=== PATIENT | male | born 1970 | race Caucasian/White ===

== ENCOUNTER 2018-01-07 22:36 | Inpatient (IN) ==
[2018-01-07] MEDS ORDERED: Diphtheria/Tetanus/Pertussis Vaccine Inj 0.5 ML Syringe IM ONE (22:41)
[2018-01-07 23:02] LABS: Baso # (Auto) 0.1 th/mm3 (0.0-0.2); Baso % (Auto) 0.9 % (0.0-2.0); Eos # (Auto) 0.1 th/mm3 (0.0-0.4); Eos % (Auto) 1.6 % (0.0-4.0); Hematocrit 45.6 % (39.0-51.0); Hemoglobin 15.6 gm/dL (13.0-17.0); Lymph # (Auto) 2.8 th/mm3 (1.0-4.8); Lymph % (Auto) 30.9 % (9.0-44.0); Mean Corpuscular HGB Conc 34.3 % (32.0-36.0); Mean Corpuscular Hemoglobin 28.2 pg (27.0-34.0); Mean Corpuscular Volume 82.3 fL (80.0-100.0); Mean Platelet Volume 8.4 fL (7.0-11.0); Mono % (Auto) 10.7 % (0.0-8.0); Neut # (Auto) 5.1 th/mm3 (1.8-7.7); Neut % (Auto) 55.9 % (16.0-70.0); Platelet Count 249 th/mm3 (150-450); Red Blood Count 5.54 mil/mm3 (4.50-5.90); Red Cell Distribution Width 16.6 % (11.6-17.2); White Blood Count 9.1 th/mm3 (4.0-11.0)
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
[2018-01-07] MEDS ORDERED: Midazolam Inj 5 MG/ML 1 ML Vial ONE ×2 (23:12→23:38)
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
[2018-01-07 23:18] LABS: Activated Partial Thrombo Time 20.9 sec (24.3-30.1); INR 1.1 Ratio; Prothrombin Time 10.8 sec (9.8-11.6)
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
--- NOTE | 2018-01-07 23:49 | ED ---
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 th/mm3 Baso # (Auto) (0.0-0.2) th/mm3 WBC Differential Differential Comment PT (9.8-11.6) sec INR Ratio APTT (24.3-30.1) sec Puncture Site Patient Temperature O2 Saturation (90-100) % ABG pH (7.380-7.420) ABG pCO2 (38-42) mmHg ABG pO2 (61-120) mmHg ABG HCO3 (22-26) mmol/L ABG O2 Content (12.0-20.0) Vol % ABG Base Excess (-2-2) mmol/L ABG Methemoglobin (0-2) % Eduardo Test Hemoglobin (12.0-16.0) G/DL Carboxyhemoglobin (0-4) % O2 Delivery Device Vent Setting Inspired O2 % Critical Value POC Sodium (137-144) mmol/L Sodium 150 H (136-145) meq/L POC Potassium (3.6-5.0) mmol/L Potassium 4.5 (3.5-5.1) meq/L POC Chloride (102-111) mmol/L Chloride 115 H (98-107) meq/L Carbon Dioxide 29.5 (21.0-32.0) meq/L Anion Gap 6 (5-15) meq/L POC BUN (5-21) mg/dL BUN 21 H (7-18) mg/dL Creatinine 1.59 H (0.60-1.30) mg/dL POC Creatinine (0.6-1.3) mg/dL Estimated GFR 47 L (>89) mL/min POC Glucose (68-110) mg/dL Random Glucose 140 H (74-106) mg/dL Calcium 7.1 L* (8.5-10.1) mg/dL Prot Corrected Calcium (8.5-10.1) mg/dL Phosphorus (2.5-4.9) mg/dL Magnesium (1.5-2.5) mg/dL Total Bilirubin (0.2-1.0) mg/dL AST (15-37) U/L ALT (12-78) U/L Alkaline Phosphatase (45-117) U/L Total Creatine Kinase (39-308) U/L CK-MB (CK-2) (0.5-3.6) ng/mL CK-MB (CK-2) % (0.0-4.0) % Total Protein (6.4-8.2) g/dL Albumin (3.4-5.0) g/dL Nasal Screen MRSA (PCR) (Negative) Blood Type Blood Type Recheck Antibody Screen MTS Gel Crossmatch Bld Prod Order Comment Imaging Data Radiologist's impression: Chest X-Ray 01/07/18 00:00 CONCLUSION: No acute cardiopulmonary disease. Chest X-Ray 01/07/18 00:00 CONCLUSION: 1. ET tube placement with tip 2 cm above the melissa. 2. No acute cardiopulmonary disease. Chest X-Ray 01/07/18 22:38 CONCLUSION: No acute cardiopulmonary disease. Pelvis X-Ray 01/07/18 22:38 CONCLUSION: 1. Diastases of the pubic symphysis. 2. Widening of the right SI joint. Abdomen/Pelvis CT 01/07/18 22:39 CONCLUSION: 1. Disruption of the pubic symphysis with the right pubic bone displaced inferiorly and anteriorly. 2. Widening of the right SI joint. 3. There is contusion along the anterior pelvic wall and right flank. Cervical Spine CT 01/07/18 22:39 CONCLUSION: 1. No fracture or subluxation. 2. Bilateral pneumothoraces. Chest CT 01/07/18 22:39 CONCLUSION: 1. Bilateral pneumothoraces. 2. Pneumomediastinum and subcutaneous emphysema bilaterally. 3. There is disruption of the costochondral junction along the upper ribs bilaterally. 4. Bilateral contusions. Head CT 01/07/18 22:39 CONCLUSION: 1. No acute intracranial abnormality. . Forearm X-Ray 01/07/18 22:47 CONCLUSION: 1. Fractures of the mid shaft of the radius and ulna. 2. Distal ulnar fracture as well. Humerus X-Ray 01/07/18 23:25 CONCLUSION: Right humerus appears intact. Chest X-Ray 01/08/18 00:00 CONCLUSION: Endotracheal tube and nasogastric tube in satisfactory position. Slight increase in basilar airspace disease since earlier exam. Bilateral chest tubes without significant pneumothorax. Forearm X-Ray 01/08/18 00:00 CONCLUSION: Fractures of the mid shafts of the radius and ulna and distal ulna have slightly improved alignment. Forearm X-Ray 01/08/18 00:00 CONCLUSION: Postoperative fixation radius and ulna. Lumbar Spine CT 01/08/18 00:00 CONCLUSION: 1. Fractures of the spinous process of L2-L5. 2. Right transverse process fractures of L2-L4. 3. Fracture of the left sacrum extending to the SI joint with widening of the right SI joint. 4. Degenerative disc disease with resultant mild multilevel spinal canal narrowing. Shoulder CT 01/08/18 00:00 CONCLUSION: 1. Suboptimal examination with the upper portions of the shoulder and acromioclavicular joint cut off this reconstructed examination. A follow-up standard shoulder CT could be performed for further evaluation. The glenohumeral joint is intact. The visualized portions of the clavicle is intact. Thoracic Spine CT 01/08/18 00:00 CONCLUSION: 1. No thoracic spine fracture. Chest X-Ray 01/08/18 00:49 CONCLUSION: 1. Bilateral consolidation likely contusions. 2. Bilateral chest tubes without pneumothoraces. Chest X-Ray 01/08/18 05:45 CONCLUSION: 1. Bilateral contusions. 2. Chest tubes without pneumothoraces. Shoulder X-Ray 01/08/18 08:41 CONCLUSION: Widening of the AC joint which could indicate an AC joint separation. Shoulder CT 01/08/18 12:45 CONCLUSION: 1. Type II AC joint injury with widening of the acromioclavicular joint and subtle superior displacement of the distal clavicle with respect to the acromion. 2. Additional traumatic injuries in the upper thorax further characterize and chest CT report. Pelvis X-Ray 01/09/18 00:00 CONCLUSION: 1. ORIF of pubic symphysis and right SI joint, as above. Chest X-Ray 01/09/18 06:00 CONCLUSION: Bilateral chest tubes without evidence of pneumothorax. Suspected left perihilar atelectasis or consolidation. Discharge Plan Discharge Disposition Patient Disposition: 30 Still Patient Physicians Team ED Provider: Bronson Pittman Primary Care Provider: UNKNOWN, Attending Provider: Александр York Other Providers: Jp Arriaga ; Jovany Aguilera ; Dandy Michel ; [employer] ; Winston Estevez ; Irma Rodarte ; Александр York ; Angella Uriostegui ; Anny Galicia ; Tavo Cee ; Adriano Barclay ; Ron Jensen ; Kimberli Bahena Status ED Status: Left Department Discharge Information Discharge Date/Time: 01/08/18 00:45
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
[2018-01-08] MEDS ORDERED: fentaNYL Citrate Inj 100 MCG/2 ML Ampul ONE ×2 (00:04→20:04)
[2018-01-08] MEDS ORDERED: Midazolam Inj 5 MG/ML 1 ML Vial ONE (00:04)
[2018-01-08] MEDS: Midazolam 50 MG/50 ML Inj 50 MG/50 ML BAG IV.CONT PRN ×3 (00:06→21:00)
[2018-01-08] MEDS: fentaNYL 10 mcg/mL Premix Drip 2,500 MCG/250 ML BAG IV.SIG PRN ×2 (00:13→23:00)
[2018-01-08] MEDS ORDERED: Etomidate Inj 20 MG/10 ML Ampul IV.PUSH ONE (00:19)
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
[2018-01-08] MEDS ORDERED: Lidocaine 1% Inj 50 ML Vial ONE (00:25)
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
[2018-01-08 01:45] LABS: ABG Base Excess -3.6 mmol/L (-2-2); ABG PCO2 38 mmHg (38-42); ABG PO2 97 mmHg (61-120)
[2018-01-08] MEDS: Pantoprazole Inj 40 MG Vial IV.PUSH SCH (02:00)
[2018-01-08] MEDS ORDERED: Chlorhexidine Gluconate 2% 1 Pack (2 Cloths) TOPICAL PRN (04:00)
[2018-01-08] MEDS ORDERED: Sod Chloride 0.9% Inj 1,000 ML IV.SIG SCH (04:45)
[2018-01-08] MEDS ORDERED: fentaNYL Citrate Inj 100 MCG/2 ML Ampul IV.PUSH SCH (04:45)
[2018-01-08 06:09] LABS: Baso % (Auto) 0.2 % (0.0-2.0); Eos % (Auto) 0.1 % (0.0-4.0); Hematocrit 44.8 % (39.0-51.0); Lymph % (Auto) 8.3 % (9.0-44.0); Mean Corpuscular HGB Conc 33.5 % (32.0-36.0); Mean Corpuscular Hemoglobin 28.3 pg (27.0-34.0); Mean Corpuscular Volume 84.4 fL (80.0-100.0); Mean Platelet Volume 8.4 fL (7.0-11.0); Mono # (Auto) 1.5 th/mm3 (0.0-0.9); Neut % (Auto) 78.4 % (16.0-70.0); Platelet Count 180 th/mm3 (150-450); Red Cell Distribution Width 16.3 % (11.6-17.2); White Blood Count 11.5 th/mm3 (4.0-11.0)
[2018-01-08 06:24] LABS: ABG Base Excess -2.5 mmol/L (-2-2); ABG PCO2 41 mmHg (38-42); ABG PO2 89 mmHg (61-120)
[2018-01-08] MEDS: Docusate Sodium 100 MG Capsule PO SCH ×3 (06:26→21:03)
[2018-01-08] MEDS: Sod Chloride 0.9% Inj 1,000 ML IV.CONT SCH (06:27)
[2018-01-08] MEDS: Chlorhexidine Gluconate 2% 1 Pack (2 Cloths) TOPICAL SCH (06:32)
[2018-01-08 07:01] LABS: Calcium 7.2 mg/dL (8.5-10.1); Carbon Dioxide 25.2 meq/L (21.0-32.0); Magnesium 1.9 mg/dL (1.5-2.5); Phosphorus 3.4 mg/dL (2.5-4.9); Potassium 4.8 meq/L (3.5-5.1); Total Protein 5.6 g/dL (6.4-8.2)
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
[2018-01-08] MEDS ORDERED: Magnesium Oxide 400 MG Tablet PO PRN (07:35)
[2018-01-08] MEDS ORDERED: Magnesium Sulfate Inj 4 GM in Sodium Chlor 0.9% Inj 92 ML IV.SIG PRN (07:35)
[2018-01-08] MEDS ORDERED: Magnesium Sulfate Inj 2 GM in Sodium Chlor 0.9% Inj 96 ML IV.SIG PRN (07:35)
[2018-01-08] MEDS ORDERED: Potassium Phosphate 500 MG Soluble Tablet PO PRN ×2 (07:35)
[2018-01-08] MEDS ORDERED: Potassium Chloride 25 MEQ Effervescent Tablet PO PRN (07:35)
[2018-01-08] MEDS ORDERED: Potassium Chlor 40 mEq Premix 40 MEQ/100 ML PIGGYBACK IV.SIG PRN ×2 (07:35)
[2018-01-08] MEDS ORDERED: Potassium Chlor 20 mEq Premix 20 MEQ/100 ML PIGGYBACK IV.SIG PRN ×2 (07:35)
[2018-01-08] MEDS ORDERED: Potassium Phosphate Inj 30 MMOL in Sodium Chlor 0.9% Inj 250 ML IV.SIG PRN (07:35)
[2018-01-08] MEDS ORDERED: Sodium Phosphate Inj 30 MMOL in Sodium Chlor 0.9% Inj 250 ML IV.SIG PRN (07:35)
[2018-01-08] MEDS ORDERED: Dextrose 50% in Water 50 ML Vial IV.PUSH PRN (07:37)
[2018-01-08] MEDS: Chlorhexidine 0.12% Oral Kit 15 ML UDC OROPHARYNG SCH ×2 (08:16→21:01)
[2018-01-08] MEDS ORDERED: Famotidine 20 MG Tablet PO SCH (09:00)
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
--- NOTE | 2018-01-08 11:55 | CT ---
EXAM DATE: 01/08/2018 11:45 AM EDT AGE/SEX: 89 years / Male INDICATIONS: Trauma CLINICAL DATA: This is the patient's initial encounter. Patient reports that signs and symptoms have been present for 1 day and indicates a pain score of Nonresponsive. MEDICAL/SURGICAL HISTORY: Non-responsive. Non-responsive. RADIATION DOSE: 0 CTDI (mGy) ; Reconstructed from previous dataset, no dose [place] [facility] [place]07[place]. . TECHNIQUE: Contiguous axial images were acquired using a multirow detector CT scanner without contra st. Multiplanar reconstruction in the sagittal and coronal planes was performed. Using automated exp osure control and adjustment of the mA and/or kV according to patient size, radiation dose was kept a s low as reasonably achievable to obtain optimal diagnostic quality images. DICOM format image data is available electronically for review and comparison. FINDINGS: Vertebrae: Normal vertebral body height. Discs: There mild degenerative disc changes with mild anterior spurring and sclerosis. Alignment: Normal. No subluxation. Axial images demonstrate that the vertebral bodies demonstrate elements are intact. There is no evide nce of acute fracture. Consolidation is again noted in both lung bases. The paravertebral soft tissue s appear unremarkable. CONCLUSION: 1. No thoracic spine fracture. Electronically signed by: Gamal Calderon MD 01/08/2018 11:54 AM EDT
--- NOTE | 2018-01-08 12:03 | CT ---
EXAM DATE: 01/08/2018 11:45 AM EDT AGE/SEX: 89 years / Male INDICATIONS: Trauma CLINICAL DATA: This is the patient's initial encounter. Patient reports that signs and symptoms have been present for 1 day and indicates a pain score of Nonresponsive. MEDICAL/SURGICAL HISTORY: Non-responsive. Non-responsive. RADIATION DOSE: 0 CTDI (mGy) ; Reconstructed from previous dataset, no dose COMPARISON: [facility] – [place] CERVICAL SPINE W/O CONTRAST, 01/07/2018. . TECHNIQUE: Contiguous axial images were acquired with a multirow detector CT scanner without contras t. Multiplanar reconstructions in the sagittal and coronal plane were also performed. Using automate d exposure control and adjustment of the mA and/or kV according to patient size, radiation dose was k ept as low as reasonably achievable to obtain optimal diagnostic quality images. DICOM format image data is available electronically for review and comparison. FINDINGS: Vertebrae: Vertebral body heights are intact. There fractures involving the spinous processes of L2- L5. There are also right transverse process fractures of L2-L4. There is a fracture of the left sacru m extending to the SI joint. There is widening of the right SI joint. Alignment: Sagittal lumbar vertebral alignment is maintained. Paraspinal Soft Tissues: Nonaneurysmal aorta. No significant prevertebral soft tissue hematoma. T12-L1: Mild diffuse disc bulge. Mild effacement anterior thecal sac. Bony neural foramina and centr al canal are patent. L1-L2: Mild diffuse disc bulge. Mild effacement anterior thecal sac. Bony neural foramina and centra l canal are patent. L2-L3: Mild diffuse disc bulge with mild ligamentum flavum hypertrophy. Effacement anterior thecal s ac. Bony central canal and neural foramina are patent. L3-L4: Mild diffuse disc bulge with effacement of the anterior central canal. Bony neural foramina a re patent. L4-L5: Mild diffuse disc bulge. Mild effacement anterior thecal sac. Bony neural foramina are patent . L5-S1: Mild bilateral facet arthropathy. Bony central canal and neuroforamina are patent. CONCLUSION: 1. Fractures of the spinous process of L2-L5. 2. Right transverse process fractures of L2-L4. 3. Fracture of the left sacrum extending to the SI joint with widening of the right SI joint. 4. Degenerative disc disease with resultant mild multilevel spinal canal narrowing. Electronically signed by: Ariel Rodriguez MD 01/08/2018 12:01 PM EDT
[2018-01-08] MEDS ORDERED: Bupivacaine 0.5% Inj 50 ML MDV Vial ONE (12:14)
[2018-01-08] MEDS ORDERED: ceFAZolin 2 GM Premix Inj 2 GM/50 ML PIGGYBACK IV.SIG ONE ×2 (12:14→15:03)
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
--- NOTE | 2018-01-08 14:17 | CT ---
EXAM DATE: 01/08/2018 12:45 PM EDT AGE/SEX: 89 years / Male INDICATIONS: Left shoulder injury CLINICAL DATA: This is the patient's initial encounter. Patient reports that signs and symptoms have been present for 1 day and indicates a pain score of Nonresponsive. MEDICAL/SURGICAL HISTORY: Non-responsive. Non-responsive. RADIATION DOSE: 36.20 CTDI (mGy) [place] [facility] [place]. . TECHNIQUE: Multiple contiguous axial images were acquired using a multirow detector CT scanner witho ut contrast. Multiplanar reconstruction was performed in the sagittal and coronal planes. Using aut omated exposure control and adjustment of the mA and/or kV according to patient size, radiation dose was kept as low as reasonably achievable to obtain optimal diagnostic quality images. DICOM format i mage data is available electronically for review and comparison. FINDINGS: Bones: Costochondral separation in the upper thorax bilaterally better visualized on chest CT exam. Partially visualized spinous process fractures in the upper thoracic spine. Visualized shoulder osseo us structures are intact without evidence for acute bony fracture.. Joints: AC joint measures approximately 1.3 cm. There is subtle superior displacement of the distal clavicle with respect to the acromion. Soft Tissues: Subcutaneous emphysema in the left chest wall with partially imaged left-sided pneumot horax. Left-sided chest tube is in place. Other: No foreign bodies seen. CONCLUSION: 1. Type II AC joint injury with widening of the acromioclavicular joint and subtle superior displace ment of the distal clavicle with respect to the acromion. 2. Additional traumatic injuries in the upper thorax further characterize and chest CT report. Electronically signed by: Ariel Rodriguez MD 01/08/2018 2:16 PM EDT
[2018-01-08 15:26] LABS: ABG Base Excess -6.2 mmol/L (-2-2); ABG PCO2 42 mmHg (38-42); ABG PO2 95 mmHG (61-120)
[2018-01-08 15:30] LABS: Baso % (Auto) 0.3 % (0.0-2.0); Eos % (Auto) 0.2 % (0.0-4.0); Hematocrit 42.6 % (39.0-51.0); Hemoglobin 14.1 gm/dL (13.0-17.0); Lymph # (Auto) 0.9 th/mm3 (1.0-4.8); Lymph % (Auto) 9.3 % (9.0-44.0); Mean Corpuscular Hemoglobin 28.2 pg (27.0-34.0); Mean Corpuscular Volume 85.5 fL (80.0-100.0); Mean Platelet Volume 8.7 fL (7.0-11.0); Mono # (Auto) 1.3 th/mm3 (0.0-0.9); Mono % (Auto) 14.6 % (0.0-8.0); Neut # (Auto) 6.9 th/mm3 (1.8-7.7); Neut % (Auto) 75.6 % (16.0-70.0); Platelet Count 158 th/mm3 (150-450); Red Blood Count 4.98 mil/mm3 (4.50-5.90); Red Cell Distribution Width 16.5 % (11.6-17.2); White Blood Count 9.2 th/mm3 (4.0-11.0)
[2018-01-08] MEDS ORDERED: Sodium Bicarbonate 8.4% Inj 50 MEQ/50 ML Syringe ONE (15:38)
--- NOTE | 2018-01-08 20:10 | XR ---
EXAM DATE: 01/08/2018 12:00 AM EDT AGE/SEX: 89 years / Male INDICATIONS: ORIF right forearm. CLINICAL DATA: This is the patient's initial encounter. Patient reports that signs and symptoms have been present for 1 day and indicates a pain score of Nonresponsive. MEDICAL/SURGICAL HISTORY: Non-responsive. Non-responsive. COMPARISON: . FINDINGS: Postoperative plate and screw fixation of fractures of the radius and ulna. No complications identifi ed. CONCLUSION: Postoperative fixation radius and ulna. Electronically signed by: Jeremy Martinez MD 01/08/2018 8:09 PM EDT
--- NOTE | 2018-01-08 21:21 | XR ---
EXAM DATE: 01/08/2018 12:00 AM EDT AGE/SEX: 89 years / Male INDICATIONS: Endo-tracheal tube placement. CLINICAL DATA: This is the patient's initial encounter. Patient reports that signs and symptoms have been present for 2 days and indicates a pain score of Nonresponsive. MEDICAL/SURGICAL HISTORY: Non-responsive. Non-responsive. COMPARISON: [facility], CHEST 1V SINGLE AP, 01/08/2018. . FINDINGS: Endotracheal tube is in good position. Esophageal temperature probe is present. NG enters stomach. Bi lateral mostly basilar airspace disease. Bilateral chest tubes. Improving subcutaneous air compared w ith exam from earlier today. CONCLUSION: Endotracheal tube and nasogastric tube in satisfactory position. Slight increase in basilar airspace disease since earlier exam. Bilateral chest tubes without significant pneumothorax. Electronically signed by: Jeremy Martinez MD 01/08/2018 9:19 PM EDT
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
[2018-01-08 21:34] LABS: ABG Base Excess -0.2 mmol/L (-2-2); ABG PCO2 43 mmHg (38-42); ABG PO2 83 mmHg (61-120)
--- NOTE | 2018-01-08 22:33 | ECG ---
Date Performed: 01/08/2018 Time Performed: 11:07:54 PTAGE: 89 years EKG: SINUS TACHYCARDIA ABNORMAL RHYTHM ECG NO PREVIOUS TRACING DOCTOR: Beatriz Hood Interpretating Date/Time 01/08/2018 22:32:16
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
[2018-01-08] MEDS: ceFAZolin Inj 2,000 MG in Sodium Chlor 0.9% Inj 80 ML IV.SIG SCH (23:00)
[2018-01-09] MEDS: Sod Chloride 0.9% Inj 1,000 ML IV.CONT SCH ×5 (01:01→20:13)
[2018-01-09] MEDS: Pantoprazole Inj 40 MG Vial IV.PUSH SCH (01:18)
[2018-01-09] MEDS: Chlorhexidine Gluconate 2% 1 Pack (2 Cloths) TOPICAL SCH (03:28)
[2018-01-09 04:12] LABS: Baso % (Auto) 0.2 % (0.0-2.0); Hematocrit 37.7 % (39.0-51.0); Hemoglobin 12.7 gm/dL (13.0-17.0); Lymph # (Auto) 0.8 th/mm3 (1.0-4.8); Lymph % (Auto) 9.3 % (9.0-44.0); Mean Corpuscular HGB Conc 33.7 % (32.0-36.0); Mean Corpuscular Hemoglobin 28.3 pg (27.0-34.0); Mean Corpuscular Volume 84.2 fL (80.0-100.0); Mean Platelet Volume 8.3 fL (7.0-11.0); Mono # (Auto) 1.1 th/mm3 (0.0-0.9); Mono % (Auto) 13.9 % (0.0-8.0); Neut # (Auto) 6.3 th/mm3 (1.8-7.7); Neut % (Auto) 76.6 % (16.0-70.0); Platelet Count 151 th/mm3 (150-450); Red Blood Count 4.47 mil/mm3 (4.50-5.90); Red Cell Distribution Width 17.2 % (11.6-17.2); White Blood Count 8.2 th/mm3 (4.0-11.0)
[2018-01-09 04:46] LABS: Calcium 7.1 mg/dL (8.5-10.1); Carbon Dioxide 29.4 meq/L (21.0-32.0); Potassium 4.5 meq/L (3.5-5.1)
[2018-01-09 04:58] LABS: Total Protein 5.5 g/dL (6.4-8.2)
--- NOTE | 2018-01-09 06:08 | XR ---
EXAM DATE: 01/09/2018 6:00 AM EDT AGE/SEX: 89 years / Male INDICATIONS: Respiratory distress. CLINICAL DATA: This is the patient's subsequent encounter. Patient reports that signs and symptoms h ave been present for 2 days and indicates a pain score of Nonresponsive. MEDICAL/SURGICAL HISTORY: Non-responsive. Appendectomy. Chest tube, left. Chest tube, right. COMPARISON: [facility] [place] 1V SINGLE AP, 01/08/2018. . FINDINGS: Bilateral chest tubes are present. A pneumothorax is not seen. ET tube and NG tube are well placed. T he heart size is within normal limits. There is an increased density in the left perihilar region lik wilda related to atelectasis or consolidation. The subcutaneous emphysema seen bilaterally. CONCLUSION: Bilateral chest tubes without evidence of pneumothorax. Suspected left perihilar atelectasis or consolidation. Electronically signed by: Marlo Branch MD 01/09/2018 6:07 AM EDT
[2018-01-09] MEDS: ceFAZolin Inj 2,000 MG in Sodium Chlor 0.9% Inj 80 ML IV.SIG SCH (06:45)
[2018-01-09] MEDS ORDERED: Tobramycin Sulfate 1,200 MG Vial (for ortho/sterile core) OTHER ONE (07:08)
--- NOTE | 2018-01-09 07:10 | P.PNOP ---
Subjective Interval history: s/p ORIF right BBFA by Dr Arriaga pubic symphysis diastasis intubated/sedated Physical Exam Vital signs: Vital Signs 01/08/18 07:10 01/08/18 07:18 01/08/18 07:20 Temperature Pulse Rate 114 H 114 H Respiratory Rate 23 19 19 Blood Pressure 113/62 119/65 Pulse Oximetry 96 96 96 01/08/18 07:30 01/08/18 07:40 01/08/18 07:50 Temperature 99.3 F 99.5 F Pulse Rate 118 H 120 H Respiratory Rate 27 H 25 H Blood Pressure 112/58 L 118/65 121/67 Pulse Oximetry 97 98 01/08/18 08:00 01/08/18 08:10 01/08/18 08:20 Temperature 99.5 F Pulse Rate 113 H Respiratory Rate 18 Blood Pressure 122/76 120/60 109/56 L Pulse Oximetry 97 01/08/18 08:30 01/08/18 08:40 01/08/18 08:50 Temperature Pulse Rate Respiratory Rate Blood Pressure 111/62 105/60 110/57 L Pulse Oximetry 01/08/18 09:00 01/08/18 09:10 01/08/18 09:20 Temperature 99.7 F H Pulse Rate 118 H Respiratory Rate 21 Blood Pressure 110/62 122/62 126/63 Pulse Oximetry 95 01/08/18 09:30 01/08/18 09:40 01/08/18 09:50 Temperature Pulse Rate Respiratory Rate Blood Pressure 116/62 117/69 120/69 Pulse Oximetry 01/08/18 10:00 01/08/18 10:10 01/08/18 10:20 Temperature 99.7 F H Pulse Rate 118 H Respiratory Rate 19 Blood Pressure 119/71 120/70 112/57 L Pulse Oximetry 96 01/08/18 10:50 01/08/18 11:00 01/08/18 11:50 Temperature 99.3 F Pulse Rate 118 H Respiratory Rate 24 Blood Pressure 125/78 118/72 122/64 Pulse Oximetry 98 01/08/18 12:00 01/08/18 12:10 01/08/18 12:30 Temperature 99.5 F Pulse Rate 116 H Respiratory Rate 23 20 Blood Pressure 116/63 115/66 Pulse Oximetry 97 97 01/08/18 13:00 01/08/18 14:34 10/21/18 19:45 Temperature 99.1 F Pulse Rate 115 H Respiratory Rate 25 H Blood Pressure 104/61 Pulse Oximetry 98 100 93 L 01/08/18 20:00 01/08/18 20:15 01/08/18 20:30 Temperature 97.0 F L 96.8 F L 97.3 F L Pulse Rate 102 H 115 H 107 H Respiratory Rate 20 32 H 20 Blood Pressure Pulse Oximetry 92 L 93 L 93 L 01/08/18 20:45 01/08/18 21:00 01/08/18 21:15 Temperature 97.3 F L 97.3 F L 97.3 F L Pulse Rate 104 H 101 H 102 H Respiratory Rate 17 15 16 Blood Pressure Pulse Oximetry 93 L 94 L 94 L 01/08/18 21:30 01/08/18 21:45 01/08/18 22:00 Temperature 97.3 F L 97.3 F L 97.3 F L Pulse Rate 101 H 101 H 100 H Respiratory Rate 16 16 17 Blood Pressure Pulse Oximetry 95 95 95 01/08/18 22:15 01/08/18 22:30 01/08/18 22:45 Temperature 97.3 F L 97.3 F L 97.3 F L Pulse Rate 100 H 99 H 99 H Respiratory Rate 17 17 17 Blood Pressure Pulse Oximetry 94 L 94 L 94 L 01/08/18 23:00 01/09/18 00:00 01/09/18 00:02 Temperature 97.3 F L 97.0 F L Pulse Rate 98 H 100 H Respiratory Rate 16 23 20 Blood Pressure Pulse Oximetry 94 L 92 L 93 L 01/09/18 00:21 01/09/18 01:00 01/09/18 02:00 Temperature 94.8 F L Pulse Rate 98 H 95 H 100 H Respiratory Rate 16 20 16 Blood Pressure Pulse Oximetry 94 L 95 01/09/18 03:00 01/09/18 04:00 01/09/18 04:24 Temperature 98.1 F 97.7 F Pulse Rate 104 H 103 H 107 H Respiratory Rate 18 21 23 Blood Pressure Pulse Oximetry 94 L 94 L 95 01/09/18 05:00 01/09/18 06:00 Temperature 98.6 F 97.7 F Pulse Rate 107 H 106 H Respiratory Rate 20 18 Blood Pressure Pulse Oximetry 94 L 95 Intake & Output 01/08/18 01/09/18 01/09/18 18:59 06:59 18:59 Intake Total 50 / 50 3450 / 3450 Output Total 1325 / 1325 Balance 50 / 50 2125 / 2125 Weight 143.1 kg Intake: IV 50 / 50 1350 / 1350 Versed Inj 50 mg In 50 ml @ 2 50 / 50 50 / 50 MG/HR 2 mls/hr IV.CONT TITRATE PRN Rx#:[id number] NS Inj 1,000 ML @ 125 mls/hr IV 950 / 950 .CONT .Q8H JOSE ARMANDO Rx#:[id number] Ancef Inj 2,000 MG In NS Inj 80 100 / 100 ML @ 200 mls/hr IV.SIG Q8H JOSE ARMANDO Rx#:[id number] fentaNYL 10 mcg/mL Premix Drip 250 / 250 2,500 mcg In 250 ml @ 50 MCG/HR 5 mls/hr IV.SIG TITRATE PRN Rx #:[id number] Oral 0 / 0 Anesthesia Amount 2100 / 2100 Output: Estimated Blood Loss 50 / 50 Urine Amount (Catheter) 1275 / 1275 Indwelling Urethral Catheter 1275 / 1275 Narrative: Pelvis: pelvic binder cut off. moderate swelling. RUE: +splint - Urinary Catheter Management Indwelling Urethral Catheter Cath placed during this visit: yes Reason for continuing: Hourly intake/output Insertion date: 01/08/18 Insertion time: 00:00 Results - Labs CBC & Chem 7: 01/09/18 04:05 01/09/18 04:05 Laboratory Results - last 24 hr 01/07/18 01/08/18 01/08/18 22:40 00:50 13:06 WBC RBC Hgb Hct MCV MCH MCHC RDW Plt Count MPV Neut % (Auto) Lymph % (Auto) [place] % (Auto) Eos % (Auto) Baso % (Auto) Neut # (Auto) Lymph # (Auto) [place] # (Auto) Eos # (Auto) Baso # (Auto) WBC Differential Differential Comment Puncture Site Patient Temperature O2 Saturation ABG pH ABG pCO2 ABG pO2 ABG HCO3 ABG O2 Content ABG Base Excess ABG Methemoglobin Eduardo Test Hemoglobin Carboxyhemoglobin O2 Delivery Device Vent Setting Inspired O2 Critical Value Sodium Potassium Chloride Carbon Dioxide Anion Gap BUN Creatinine Estimated GFR POC Glucose 130 H Random Glucose Calcium Prot Corrected Calcium Total Protein Nasal Screen MRSA (PCR) Not detected Blood Type B Negative Blood Type Recheck Not needed Antibody Screen Negative MTS Gel Crossmatch See Detail 01/08/18 01/08/18 01/08/18 13:26 14:50 15:04 WBC 9.2 RBC 4.98 Hgb 14.1 Hct 42.6 MCV 85.5 MCH 28.2 MCHC 33.0 RDW 16.5 Plt Count 158 MPV 8.7 Neut % (Auto) 75.6 H Lymph % (Auto) 9.3 [place] % (Auto) 14.6 H Eos % (Auto) 0.2 Baso % (Auto) 0.3 Neut # (Auto) 6.9 Lymph # (Auto) 0.9 L [place] # (Auto) 1.3 H Eos # (Auto) 0.0 Baso # (Auto) 0.0 WBC Differential . Differential Comment Auto diff final Puncture Site Drawn in or Patient Temperature 98.6 O2 Saturation 94 ABG pH 7.28 L* ABG pCO2 42 ABG pO2 95 ABG HCO3 19 L ABG O2 Content 19.0 ABG Base Excess -6.2 L ABG Methemoglobin 1.5 Eduardo Test Present Hemoglobin 14.3 Carboxyhemoglobin 0.7 O2 Delivery Device Or Vent Setting Inspired O2 Critical Value Yes Sodium Potassium Chloride Carbon Dioxide Anion Gap BUN Creatinine Estimated GFR POC Glucose 132 H Random Glucose Calcium Prot Corrected Calcium Total Protein Nasal Screen MRSA (PCR) Blood Type Blood Type Recheck Antibody Screen MTS Gel Crossmatch 01/08/18 01/09/18 01/09/18 21:17 01:18 04:05 WBC 8.2 RBC 4.47 L Hgb 12.7 L Hct 37.7 L MCV 84.2 MCH 28.3 MCHC 33.7 RDW 17.2 Plt Count 151 MPV 8.3 Neut % (Auto) 76.6 H Lymph % (Auto) 9.3 [place] % (Auto) 13.9 H Eos % (Auto) 0.0 Baso % (Auto) 0.2 Neut # (Auto) 6.3 Lymph # (Auto) 0.8 L [place] # (Auto) 1.1 H Eos # (Auto) 0.0 Baso # (Auto) 0.0 WBC Differential . Differential Comment Auto diff final Puncture Site Art line Patient Temperature 98.6 O2 Saturation 95 ABG pH 7.38 ABG pCO2 43 H ABG pO2 83 ABG HCO3 24 ABG O2 Content 18.2 ABG Base Excess -0.2 ABG Methemoglobin 0.5 Eduardo Test Hemoglobin 13.6 Carboxyhemoglobin 1.2 O2 Delivery Device Ventilator Vent Setting See comments Inspired O2 100 Critical Value No Sodium Potassium Chloride Carbon Dioxide Anion Gap BUN Creatinine Estimated GFR POC Glucose 147 H Random Glucose Calcium Prot Corrected Calcium Total Protein Nasal Screen MRSA (PCR) Blood Type Blood Type Recheck Antibody Screen MTS Gel Crossmatch 01/09/18 04:05 WBC RBC Hgb Hct MCV MCH MCHC RDW Plt Count MPV Neut % (Auto) Lymph % (Auto) [place] % (Auto) Eos % (Auto) Baso % (Auto) Neut # (Auto) Lymph # (Auto) [place] # (Auto) Eos # (Auto) Baso # (Auto) WBC Differential Differential Comment Puncture Site Patient Temperature O2 Saturation ABG pH ABG pCO2 ABG pO2 ABG HCO3 ABG O2 Content ABG Base Excess ABG Methemoglobin Eduardo Test Hemoglobin Carboxyhemoglobin O2 Delivery Device Vent Setting Inspired O2 Critical Value Sodium 144 Potassium 4.5 Chloride 110 H Carbon Dioxide 29.4 Anion Gap 5 BUN 22 H Creatinine 1.73 H Estimated GFR 34 L POC Glucose Random Glucose 165 H Calcium 7.1 L* Prot Corrected Calcium 7.9 L Total Protein 5.5 L Nasal Screen MRSA (PCR) Blood Type Blood Type Recheck Antibody Screen MTS Gel Crossmatch - Imaging Impressions Abdomen/Pelvis CT 01/07/18 22:39 CONCLUSION: 1. Disruption of the pubic symphysis with the right pubic bone displaced inferiorly and anteriorly. 2. Widening of the right SI joint. 3. There is contusion along the anterior pelvic wall and right flank. Chest X-Ray 01/08/18 00:00 CONCLUSION: Endotracheal tube and nasogastric tube in satisfactory position. Slight increase in basilar airspace disease since earlier exam. Bilateral chest tubes without significant pneumothorax. Forearm X-Ray 01/08/18 00:00 CONCLUSION: Postoperative fixation radius and ulna. Lumbar Spine CT 01/08/18 00:00 CONCLUSION: 1. Fractures of the spinous process of L2-L5. 2. Right transverse process fractures of L2-L4. 3. Fracture of the left sacrum extending to the SI joint with widening of the right SI joint. 4. Degenerative disc disease with resultant mild multilevel spinal canal narrowing. Shoulder CT 01/08/18 00:00 CONCLUSION: 1. Suboptimal examination with the upper portions of the shoulder and acromioclavicular joint cut off this reconstructed examination. A follow-up standard shoulder CT could be performed for further evaluation. The glenohumeral joint is intact. The visualized portions of the clavicle is intact. Thoracic Spine CT 01/08/18 00:00 CONCLUSION: 1. No thoracic spine fracture. Chest X-Ray 01/08/18 05:45 CONCLUSION: 1. Bilateral contusions. 2. Chest tubes without pneumothoraces. Shoulder X-Ray 01/08/18 08:41 CONCLUSION: Widening of the AC joint which could indicate an AC joint separation. Shoulder CT 01/08/18 12:45 CONCLUSION: 1. Type II AC joint injury with widening of the acromioclavicular joint and subtle superior displacement of the distal clavicle with respect to the acromion. 2. Additional traumatic injuries in the upper thorax further characterize and chest CT report. Chest X-Ray 01/09/18 06:00 CONCLUSION: Bilateral chest tubes without evidence of pneumothorax. Suspected left perihilar atelectasis or consolidation. 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
[2018-01-09] MEDS: Insulin NovoLOG Aspart Correctional Sugar Inj SQ SCH ×6 (08:05→17:57)
[2018-01-09] MEDS: Oral Hygiene Kit OROPHARYNG SCH ×4 (08:06→16:48)
[2018-01-09] MEDS: Chlorhexidine 0.12% Oral Kit 15 ML UDC OROPHARYNG SCH ×2 (08:07→20:03)
[2018-01-09] MEDS: Docusate Sodium 100 MG Capsule PO SCH (08:08)
[2018-01-09] MEDS: Midazolam 50 MG/50 ML Inj 50 MG/50 ML BAG IV.CONT PRN ×2 (08:20→15:56)
[2018-01-09] MEDS ORDERED: SODIUM CHLOR 0.9% IV.SIG SCH (09:00)
[2018-01-09] MEDS ORDERED: TRANEXAMIC ACID IV.SIG SCH (09:00)
[2018-01-09] MEDS ORDERED: Morphine Inj 4 MG/ML Vial IV.PUSH PRN (10:11)
[2018-01-09] MEDS ORDERED: Post-op Orders (for Pharmacy) OTHER STA (10:11)
--- NOTE | 2018-01-09 10:19 | P.OP ---
- Preoperative Diagnosis (1) Fracture of pelvic ring with complete disruption of posterior arch Date of procedure: 01/09/18 Procedure: Open reduction internal fixation pubic symphysis, right sacroiliac joint reduction with screw placement Anesthesia: ONUR Surgeon: Ron Jensen MD Traffic Supervisor: GERSON Levin PA-C The surgical procedure was assisted by my physician assistant office manager. My P.A. presence was necessary throughout this case for the manipulation and positioning of the surgical extremity. My P.A. was assisting me throughout the duration of this procedure. The skill set of a physician assistant office manager was medically necessary to complete this procedure. During the surgical case the social services technician was working at the back table and the physician assistant office manager was directly assisting me. Operation and Findings: Implants used: Synthes Plan of activity: Weight-bear as tolerated left leg for transfers only, toe- touch weightbearing right leg Details of procedure: Patient was seen and evaluated preoperatively from patient 's . Informed consent was obtained after detailed discussion of risk and benefits of surgery. The operative site was marked. Patient was brought to the OR and placed on the OR table. IV sedation and general endotracheal anesthesia were administered. The pelvic region was prepped with alcohol followed by Hibiclens and draped in the usual sterile fashion. A timeout procedure was performed. IV antibiotics were given prior to incision. The procedure began with a five-inch Pfannenstiel incision over the lower abdomen. The subcutaneous tissue was dissected with Bovie. The abdominal fascia was visualized. The right rectus abdominis muscle and tendon were avulsed from the pubic rami. There was significant soft tissue disruption of the lower abdominal wall. The linea alba was split in line with fibers. The bladder was identified. The bladder was protected throughout the procedure. At this point the pubic symphysis was identified. There was disruption of the pubic symphysis. A 3.5 screw was placed on each side of the pubic symphysis. A 3.5 reduction clamp was now used to reduce the symphysis. Fluoroscopy confirmed excellent alignment of the pelvic ring. A six-hole Synthes plate was selected. The plate was provisionally held to bone with K-wires. 3.5 cortical screws were used to compress plate to bone. Three screws were placed on each side of the pubic symphysis. All screws were pre-drilled and pre-measured for appropriate length. Final fluoroscopy revealed well-aligned fracture with well- placed hardware. Next the sacroiliac joints were visualized under fluoroscopy. There was still widening of the right sacroiliac joint. A 1 cm incision was made over the lateral ilium. A guidepin was placed to the cortex of the lateral ilium. Using a combination of inlet and outlet fluoroscopy the guidepin was advanced into the center of the S1 body. Care was taken to avoid injury to neurovascular structures. Fluoroscopy confirmed appropriate guidepin placement. A 80 mm screw with washer was now placed. The joint was now reduced and compressed with screw. Fluoroscopy confirmed appropriate reduction of the anterior and posterior pelvis with appropriate hardware position. Next attention was turned to closure. A STEFF drain was placed deep in the wound. Fascial layer was closed with #1 Vicryl. The rectus abdominis tendon was sutured back in place to the plate using the appropriate suture holes. Subcutaneous tissues closed with 3-0 Vicryl. Skin was closed with pb. Sterile dressings were applied. Needle and sponge counts were correct.
--- NOTE | 2018-01-09 10:28 | XR ---
EXAM DATE: 01/09/2018 12:00 AM EDT AGE/SEX: 89 years / Male INDICATIONS: ORIF Pubic symphsis and right SI joint. CLINICAL DATA: This is the patient's subsequent encounter. Patient reports that signs and symptoms h ave been present for 2 days and indicates a pain score of Nonresponsive. MEDICAL/SURGICAL HISTORY: Non-responsive. Non-responsive. COMPARISON: [facility] [place], CT ABDOMEN & PELVIS W CONTRAST, 01/07/2018. . FINDINGS: Interval screw fixation of the right SI joint and plate and screw fixation of the pubic symphysis. Null rdware appears intact. There is near-anatomic alignment with slight residual asymmetry of the pubic s ymphysis. CONCLUSION: 1. ORIF of pubic symphysis and right SI joint, as above. Electronically signed by: Ariel Rodriguez MD 01/09/2018 10:27 AM EDT
[2018-01-09] MEDS ORDERED: ceFAZolin Inj 2,000 MG in Sodium Chlor 0.9% Inj 80 ML IV.SIG SCH (11:00)
[2018-01-09] MEDS: Calcium/Vitamin D 250/125 MG Tablet PO SCH ×2 (12:15→17:03)
--- NOTE | 2018-01-09 13:13 | P.PNOP ---
Subjective Interval history: Marlo remains on ventilatory support this morning. Plans for OR today with Dr. Jensen. No acute overnight events. Physical Exam Vital signs: Vital Signs 01/08/18 14:34 01/08/18 19:45 01/08/18 20:00 Temperature 97.0 F L Pulse Rate 102 H Respiratory Rate 20 Blood Pressure Pulse Oximetry 100 93 L 92 L 01/08/18 20:15 01/08/18 20:30 01/08/18 20:45 Temperature 96.8 F L 97.3 F L 97.3 F L Pulse Rate 115 H 107 H 104 H Respiratory Rate 32 H 20 17 Blood Pressure Pulse Oximetry 93 L 93 L 93 L 01/08/18 21:00 01/08/18 21:15 01/08/18 21:30 Temperature 97.3 F L 97.3 F L 97.3 F L Pulse Rate 101 H 102 H 101 H Respiratory Rate 15 16 16 Blood Pressure Pulse Oximetry 94 L 94 L 95 01/08/18 21:45 01/08/18 22:00 01/08/18 22:15 Temperature 97.3 F L 97.3 F L 97.3 F L Pulse Rate 101 H 100 H 100 H Respiratory Rate 16 17 17 Blood Pressure Pulse Oximetry 95 95 94 L 01/08/18 22:30 01/08/18 22:45 01/08/18 23:00 Temperature 97.3 F L 97.3 F L 97.3 F L Pulse Rate 99 H 99 H 98 H Respiratory Rate 17 17 16 Blood Pressure Pulse Oximetry 94 L 94 L 94 L 01/09/18 00:00 01/09/18 00:02 01/09/18 00:21 Temperature 97.0 F L Pulse Rate 100 H 98 H Respiratory Rate 23 20 16 Blood Pressure Pulse Oximetry 92 L 93 L 01/09/18 01:00 01/09/18 02:00 01/09/18 03:00 Temperature 94.8 F L 98.1 F Pulse Rate 95 H 100 H 104 H Respiratory Rate 20 16 18 Blood Pressure Pulse Oximetry 94 L 95 94 L 01/09/18 04:00 01/09/18 04:24 01/09/18 05:00 Temperature 97.7 F 98.6 F Pulse Rate 103 H 107 H 107 H Respiratory Rate 21 23 20 Blood Pressure Pulse Oximetry 94 L 95 94 L 01/09/18 06:00 01/09/18 07:00 01/09/18 08:00 Temperature 97.7 F 99.5 F 99.1 F Pulse Rate 106 H 108 H 111 H Respiratory Rate 18 19 20 Blood Pressure 135/63 Pulse Oximetry 95 93 L 93 L 01/09/18 08:25 01/09/18 11:00 01/09/18 11:45 Temperature 98.3 F Pulse Rate 107 H Respiratory Rate 19 16 Blood Pressure Pulse Oximetry 95 92 L 01/09/18 12:00 Temperature 98.4 F Pulse Rate 109 H Respiratory Rate 22 Blood Pressure 150/77 H Pulse Oximetry 93 L Intake & Output 01/08/18 01/09/18 01/09/18 18:59 06:59 18:59 Intake Total 50 / 50 3450 / 3450 2176.46 / 2176.46 Output Total 2925 / 2925 850 / 850 Balance 50 / 50 525 / 525 1326.46 / 1326.46 Weight 143.1 kg Intake: IV 50 / 50 1350 / 1350 976.46 / 976.46 Versed Inj 50 mg In 50 ml @ 2 50 / 50 50 / 50 50 / 50 MG/HR 2 mls/hr IV.CONT TITRATE PRN Rx#:[id number] NS Inj 1,000 ML @ 125 mls/hr IV 950 / 950 700 / 700 .CONT .Q8H JOSE ARMANDO Rx#:[id number] Cyklokapron Inj 2,146 MG In NS 126.46 / 126.46 Inj 100 ML @ 200 mls/hr IV.SIG ONCE JOSE ARMANDO Rx#:[id number] Ancef Inj 2,000 MG In NS Inj 80 100 / 100 100 / 100 ML @ 200 mls/hr IV.SIG Q8H JOSE ARMANDO Rx#:[id number] fentaNYL 10 mcg/mL Premix Drip 250 / 250 2,500 mcg In 250 ml @ 50 MCG/HR 5 mls/hr IV.SIG TITRATE PRN Rx #:[id number] Oral 0 / 0 0 / 0 Anesthesia Amount 2100 / 2100 1200 / 1200 Output: Estimated Blood Loss 100 / 100 200 / 200 Urine Amount (Catheter) 2775 / 2775 650 / 650 Indwelling Urethral Catheter 2775 / 2775 650 / 650 Gastric Drainage 50 / 50 Oral Orogastric Tube 50 / 50 Chest Tube Drainage 0 / 0 #1 Right Mid-Axillary Chest 0 / 0 #2 Left Mid-Axillary Chest 0 / 0 - Constitutional Comments: Intubated, sedated - Routine Extremities Exam Comments: Focused evaluation of right upper extremity demonstrates a long arm splint intact. Fingers exposed. Brisk cap refill less than 2 seconds. No spontaneous motor movement appreciated. A detailed Motor and sensory examination is limited by patient's mental status. - Urinary Catheter Management Indwelling Urethral Catheter Cath placed during this visit: yes Reason for continuing: Hourly intake/output Insertion date: 01/08/18 Insertion time: 00:00 Results - Labs CBC & Chem 7: 01/09/18 04:05 01/09/18 04:05 Laboratory Results - last 24 hr 01/07/18 01/08/18 01/08/18 22:40 13:06 13:26 WBC RBC Hgb Hct MCV MCH MCHC RDW Plt Count MPV Neut % (Auto) Lymph % (Auto) [place] % (Auto) Eos % (Auto) Baso % (Auto) Neut # (Auto) Lymph # (Auto) [place] # (Auto) Eos # (Auto) Baso # (Auto) WBC Differential Differential Comment Puncture Site Patient Temperature O2 Saturation ABG pH ABG pCO2 ABG pO2 ABG HCO3 ABG O2 Content ABG Base Excess ABG Methemoglobin Eduardo Test Hemoglobin Carboxyhemoglobin O2 Delivery Device Vent Setting Inspired O2 Critical Value Sodium Potassium Chloride Carbon Dioxide Anion Gap BUN Creatinine Estimated GFR POC Glucose 130 H 132 H Random Glucose Calcium Prot Corrected Calcium Total Protein Blood Type B Negative Blood Type Recheck Not needed Antibody Screen Negative MTS Gel Crossmatch See Detail 01/08/18 01/08/18 01/08/18 14:50 15:04 21:17 WBC 9.2 RBC 4.98 Hgb 14.1 Hct 42.6 MCV 85.5 MCH 28.2 MCHC 33.0 RDW 16.5 Plt Count 158 MPV 8.7 Neut % (Auto) 75.6 H Lymph % (Auto) 9.3 [place] % (Auto) 14.6 H Eos % (Auto) 0.2 Baso % (Auto) 0.3 Neut # (Auto) 6.9 Lymph # (Auto) 0.9 L [place] # (Auto) 1.3 H Eos # (Auto) 0.0 Baso # (Auto) 0.0 WBC Differential . Differential Comment Auto diff final Puncture Site Drawn in or Art line Patient Temperature 98.6 98.6 O2 Saturation 94 95 ABG pH 7.28 L* 7.38 ABG pCO2 42 43 H ABG pO2 95 83 ABG HCO3 19 L 24 ABG O2 Content 19.0 18.2 ABG Base Excess -6.2 L -0.2 ABG Methemoglobin 1.5 0.5 Eduardo Test Present Hemoglobin 14.3 13.6 Carboxyhemoglobin 0.7 1.2 O2 Delivery Device Or Ventilator Vent Setting See comments Inspired O2 100 Critical Value Yes No Sodium Potassium Chloride Carbon Dioxide Anion Gap BUN Creatinine Estimated GFR POC Glucose Random Glucose Calcium Prot Corrected Calcium Total Protein Blood Type Blood Type Recheck Antibody Screen MTS Gel Crossmatch 01/09/18 01/09/18 01/09/18 01:18 04:05 04:05 WBC 8.2 RBC 4.47 L Hgb 12.7 L Hct 37.7 L MCV 84.2 MCH 28.3 MCHC 33.7 RDW 17.2 Plt Count 151 MPV 8.3 Neut % (Auto) 76.6 H Lymph % (Auto) 9.3 [place] % (Auto) 13.9 H Eos % (Auto) 0.0 Baso % (Auto) 0.2 Neut # (Auto) 6.3 Lymph # (Auto) 0.8 L [place] # (Auto) 1.1 H Eos # (Auto) 0.0 Baso # (Auto) 0.0 WBC Differential . Differential Comment Auto diff final Puncture Site Patient Temperature O2 Saturation ABG pH ABG pCO2 ABG pO2 ABG HCO3 ABG O2 Content ABG Base Excess ABG Methemoglobin Eduardo Test Hemoglobin Carboxyhemoglobin O2 Delivery Device Vent Setting Inspired O2 Critical Value Sodium 144 Potassium 4.5 Chloride 110 H Carbon Dioxide 29.4 Anion Gap 5 BUN 22 H Creatinine 1.73 H Estimated GFR 34 L POC Glucose 147 H Random Glucose 165 H Calcium 7.1 L* Prot Corrected Calcium 7.9 L Total Protein 5.5 L Blood Type Blood Type Recheck Antibody Screen MTS Gel Crossmatch 01/09/18 01/09/18 08:23 11:08 WBC RBC Hgb Hct MCV MCH MCHC RDW Plt Count MPV Neut % (Auto) Lymph % (Auto) [place] % (Auto) Eos % (Auto) Baso % (Auto) Neut # (Auto) Lymph # (Auto) [place] # (Auto) Eos # (Auto) Baso # (Auto) WBC Differential Differential Comment Puncture Site Patient Temperature O2 Saturation ABG pH ABG pCO2 ABG pO2 ABG HCO3 ABG O2 Content ABG Base Excess ABG Methemoglobin Eduardo Test Hemoglobin Carboxyhemoglobin O2 Delivery Device Vent Setting Inspired O2 Critical Value Sodium Potassium Chloride Carbon Dioxide Anion Gap BUN Creatinine Estimated GFR POC Glucose 160 H 154 H Random Glucose Calcium Prot Corrected Calcium Total Protein Blood Type Blood Type Recheck Antibody Screen MTS Gel Crossmatch - Imaging Impressions Chest X-Ray 01/08/18 00:00 CONCLUSION: Endotracheal tube and nasogastric tube in satisfactory position. Slight increase in basilar airspace disease since earlier exam. Bilateral chest tubes without significant pneumothorax. Forearm X-Ray 01/08/18 00:00 CONCLUSION: Postoperative fixation radius and ulna. Shoulder CT 01/08/18 12:45 CONCLUSION: 1. Type II AC joint injury with widening of the acromioclavicular joint and subtle superior displacement of the distal clavicle with respect to the acromion. 2. Additional traumatic injuries in the upper thorax further characterize and chest CT report. Pelvis X-Ray 01/09/18 00:00 CONCLUSION: 1. ORIF of pubic symphysis and right SI joint, as above. Chest X-Ray 01/09/18 06:00 CONCLUSION: Bilateral chest tubes without evidence of pneumothorax. Suspected left perihilar atelectasis or consolidation. Assessment and Plan - Assessment and Plan 1. Right radius and ulna, open fractures, type I, status post right radius and ulna open reduction internal fixation 1. Strict nonweightbearing to the right upper extremity. 2. Maintain antibiotics x 48 hours for open fracture prophylaxis. 3. Plan for take back to the operating room with Dr. Jensen and orthopedic trauma team later this week for fixation of his pelvis. 4. With regard to his upper extremity. The patient needs to follow up with Dr. Linn in 2 weeks for transition to a removable splint and to start gentle elbow and wrist range of motion. All questions and concerns were addressed at bedside. A phone call was made to the patient's to review the planned care. A detailed voice message was left. I then unable to communicate with the since time of surgery. Nurse may contact me on my personal cell phone: [phone] when the is available to discuss
--- NOTE | 2018-01-09 13:19 | ECHRPT ---
Indication: CARDIOMYOPATHY CONCLUSIONS Secondary to severe chest trauma and poor acoustic windows, images could not be obtained for review BP: / HR: Rhythm: Technical Quality:Very technically difficult study Sagar Escamilla MD, FACC (Electronically Signed) Final Date:09 January 2018 13:18
[2018-01-09 13:22] LABS: Hematocrit 34.2 % (39.0-51.0); Hemoglobin 11.4 gm/dL (13.0-17.0)
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
[2018-01-09] MEDS: ceFAZolin 2 GM Premix Inj 2 GM/50 ML PIGGYBACK IV.SIG SCH ×2 (14:04→22:30)
[2018-01-09 14:28] LABS: CKMB Percent 0.3 % (0.0-4.0); Creatine Kinase MB 35.6 ng/mL (0.5-3.6)
[2018-01-09] MEDS ORDERED: fentaNYL Citrate Inj 100 MCG/2 ML Ampul ONE (15:54)
[2018-01-09] MEDS: fentaNYL 10 mcg/mL Premix Drip 2,500 MCG/250 ML BAG IV.SIG PRN (15:55)
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
[2018-01-09] MEDS: Propofol 1000 mg/100 ml Inj 1,000 MG/100 ML BOTTLE IV.CONT PRN ×2 (17:20→22:30)
[2018-01-09] MEDS: Senna/Docusate Sodium 8.6/50 MG Tablet PO SCH (20:02)
[2018-01-10] MEDS: Pantoprazole Inj 40 MG Vial IV.PUSH SCH (00:29)
[2018-01-10] MEDS: Midazolam 50 MG/50 ML Inj 50 MG/50 ML BAG IV.CONT PRN ×2 (00:30→12:59)
[2018-01-10] MEDS: Oral Hygiene Kit OROPHARYNG SCH ×5 (01:50→23:30)
[2018-01-10] MEDS: fentaNYL 10 mcg/mL Premix Drip 2,500 MCG/250 ML BAG IV.SIG PRN ×2 (04:30→17:19)
[2018-01-10 04:45] LABS: Baso % (Auto) 0.3 % (0.0-2.0); Eos # (Auto) 0.1 th/mm3 (0.0-0.4); Hematocrit 29.8 % (39.0-51.0); Lymph # (Auto) 0.8 th/mm3 (1.0-4.8); Lymph % (Auto) 13.3 % (9.0-44.0); Mean Corpuscular HGB Conc 33.6 % (32.0-36.0); Mean Corpuscular Hemoglobin 28.9 pg (27.0-34.0); Mean Corpuscular Volume 85.9 fL (80.0-100.0); Mean Platelet Volume 8.4 fL (7.0-11.0); Mono # (Auto) 0.7 th/mm3 (0.0-0.9); Mono % (Auto) 12.9 % (0.0-8.0); Neut # (Auto) 4.1 th/mm3 (1.8-7.7); Neut % (Auto) 71.5 % (16.0-70.0); Platelet Count 111 th/mm3 (150-450); Red Blood Count 3.46 mil/mm3 (4.50-5.90); Red Cell Distribution Width 16.6 % (11.6-17.2); White Blood Count 5.8 th/mm3 (4.0-11.0)
[2018-01-10 05:10] LABS: Calcium 7.1 mg/dL (8.5-10.1); Carbon Dioxide 29.5 meq/L (21.0-32.0); Potassium 4.5 meq/L (3.5-5.1)
--- NOTE | 2018-01-10 05:26 | XR ---
EXAM DATE: 01/10/2018 12:00 AM EDT AGE/SEX: 47 years / Male INDICATIONS: Respiratory distress. CLINICAL DATA: This is the patient's subsequent encounter. Patient reports that signs and symptoms h ave been present for 3 days and indicates a pain score of Nonresponsive. MEDICAL/SURGICAL HISTORY: . Appendectomy. Chest tube, left. Chest tube, right. COMPARISON: [facility], CHEST 1V SINGLE AP, 01/09/2018. . FINDINGS: The ET tube and NG tube are well placed. There are bilateral chest tubes present without evidence for pneumothorax. The heart size is borderline enlarged. There is hazy density seen at the mid and lower lungs being worse than the left likely related to atelectasis or consolidation. There is persistent but improving subcutaneous emphysema. CONCLUSION: Bilateral chest tubes without evidence of pneumothorax. Bilateral areas of increased density in the mid and lower lungs being worse in the left likely relate d to consolidation or atelectasis. Electronically signed by: Marlo Branch MD 01/10/2018 5:25 AM EDT
[2018-01-10 05:41] LABS: Total Protein 5.1 g/dL (6.4-8.2)
[2018-01-10] MEDS: Chlorhexidine Gluconate 2% 1 Pack (2 Cloths) TOPICAL SCH (05:50)
[2018-01-10] MEDS: Insulin NovoLOG Aspart Correctional Sugar Inj SQ SCH ×4 (05:57→18:41)
[2018-01-10 06:05] LABS: ABG Base Excess 3.5 mmol/L (-2-2); ABG PCO2 43 mmHg (38-42); ABG PO2 84 mmHg (61-120)
[2018-01-10] MEDS: ceFAZolin 2 GM Premix Inj 2 GM/50 ML PIGGYBACK IV.SIG SCH ×3 (06:38→23:29)
[2018-01-10] MEDS: Senna/Docusate Sodium 8.6/50 MG Tablet PO SCH ×2 (08:15→20:00)
[2018-01-10] MEDS: Calcium/Vitamin D 250/125 MG Tablet PO SCH ×3 (08:15→17:19)
[2018-01-10] MEDS: Chlorhexidine 0.12% Oral Kit 15 ML UDC OROPHARYNG SCH ×2 (08:15→19:59)
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
[2018-01-10] MEDS: Sodium Chloride 0.45 % Inj 1,000 ML IV.CONT SCH ×2 (09:30→22:13)
[2018-01-10] MEDS ORDERED: Enoxaparin Inj 30 MG/0.3 ML Syringe SQ SCH (10:00)
[2018-01-10] MEDS: Enoxaparin Inj 40 MG/0.4 ML Syringe SQ SCH ×2 (11:32→23:27)
[2018-01-10] MEDS: Propofol 1000 mg/100 ml Inj 1,000 MG/100 ML BOTTLE IV.CONT PRN ×2 (12:58→23:28)
--- NOTE | 2018-01-10 14:50 | ECHRPT ---
Indication: CONCLUSIONS Technically exceedingly difficult and limited study, making assessment of left ventricular function and wall motion suboptimal. Grossly, left ventricular function may be normal or low normal. Regional wall m otion abnormalities cannot be excluded on the basis of this studay. The right ventricle may be mildly enlarged. Right ventricular function cannot be adequately assesse d. No definite significant valvular abnormalities though the technical limitations of the study preclud e adequate valvular assessment. BP: / HR: Rhythm: MEASUREMENTS (Male / Female) Normal Values Technical Quality: 2D ECHO LV Ejection Fraction MOD 4C 66.4 % LV Ejection Fraction 4C AL 67.8 % M-MODE LV Diastolic Diameter MM 5.1 cm 4.2 - 5.9 / 3.9 - 5.3 cm LV Systolic Diameter MM 3.7 cm LV Ejection Fraction MM Teich 54.4 % IVS Diastolic Thickness MM 1.8 cm 0.6 - 1.0 / 0.6 - 0.9 cm LVPW Diastolic Thickness MM 1.7 cm 0.6 - 1.0 / 0.6 - 0.9 cm LV Relative Wall Thickness MM 0.7 0.24 - 0.42 / 0.22 - 0.42 RV Diastolic Diameter MM 2.2 cm DOPPLER AV Peak Velocity 128.0 cm/s AV Peak Gradient 6.6 mmHg LVOT Peak Velocity 89.3 cm/s LVOT Peak Gradient 3.2 mmHg Mitral E Point Velocity 68.1 cm/s Mitral A Point Velocity 60.7 cm/s Mitral E to A Ratio 1.1 TR Peak Velocity 191.0 cm/s TR Peak Gradient 14.6 mmHg Right Atrial Pressure 10.0 mmHg Pulmonary Artery Systolic Pressu 24.6 mmHg Right Ventricular Systolic Press 24.6 mmHg PV Peak Velocity 115.0 cm/s PV Peak Gradient 5.3 mmHg FINDINGS LEFT VENTRICLE Technically exceedingly difficult and limited study, making assessment of left ventricular function and wall motion suboptimal. Grossly, left ventricular function may be normal or low normal. Regional wall m otion abnormalities cannot be excluded on the basis of this studay. RIGHT VENTRICLE The right ventricle may be mildly enlarged. Right ventricular function cannot be adequately assesse katerin Payne MD (Electronically Signed) Final Date:10 January 2018 12:39
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
[2018-01-11] MEDS: Pantoprazole Inj 40 MG Vial IV.PUSH SCH (00:24)
[2018-01-11] MEDS: Insulin NovoLOG Aspart Correctional Sugar Inj SQ SCH ×4 (00:24→18:41)
[2018-01-11] MEDS: Midazolam 50 MG/50 ML Inj 50 MG/50 ML BAG IV.CONT PRN (01:49)
[2018-01-11] MEDS: Chlorhexidine Gluconate 2% 1 Pack (2 Cloths) TOPICAL SCH (04:51)
[2018-01-11] MEDS: Oral Hygiene Kit OROPHARYNG SCH ×3 (04:52→17:19)
[2018-01-11] MEDS: fentaNYL 10 mcg/mL Premix Drip 2,500 MCG/250 ML BAG IV.SIG PRN ×2 (05:36→18:41)
[2018-01-11] MEDS: ceFAZolin 2 GM Premix Inj 2 GM/50 ML PIGGYBACK IV.SIG SCH (06:00)
[2018-01-11 06:22] LABS: Baso % (Auto) 0.3 % (0.0-2.0); Eos # (Auto) 0.1 th/mm3 (0.0-0.4); Hemoglobin 8.9 gm/dL (13.0-17.0); Lymph # (Auto) 0.6 th/mm3 (1.0-4.8); Lymph % (Auto) 10.4 % (9.0-44.0); Mean Corpuscular HGB Conc 33.1 % (32.0-36.0); Mean Corpuscular Hemoglobin 28.5 pg (27.0-34.0); Mean Corpuscular Volume 86.2 fL (80.0-100.0); Mean Platelet Volume 8.1 fL (7.0-11.0); Mono # (Auto) 0.6 th/mm3 (0.0-0.9); Mono % (Auto) 10.8 % (0.0-8.0); Neut # (Auto) 4.3 th/mm3 (1.8-7.7); Neut % (Auto) 76.5 % (16.0-70.0); Platelet Count 132 th/mm3 (150-450); Red Blood Count 3.13 mil/mm3 (4.50-5.90); Red Cell Distribution Width 17.1 % (11.6-17.2); White Blood Count 5.6 th/mm3 (4.0-11.0)
[2018-01-11 06:53] LABS: Calcium 6.9 mg/dL (8.5-10.1); Carbon Dioxide 29.2 meq/L (21.0-32.0)
--- NOTE | 2018-01-11 07:02 | P.PNOP ---
Subjective Interval history: POD 2 s/p ORIF pubic symphysis and percutaneous fixation of right SI joint intubated/sedated Physical Exam Vital signs: Vital Signs 01/10/18 07:00 01/10/18 08:00 01/10/18 09:00 Temperature 99.4 F Pulse Rate 87 86 88 Respiratory Rate 16 16 16 Blood Pressure Pulse Oximetry 99 99 100 01/10/18 10:00 01/10/18 10:13 01/10/18 10:31 Temperature Pulse Rate 91 H 86 Respiratory Rate 16 16 16 Blood Pressure Pulse Oximetry 99 97 01/10/18 11:00 01/10/18 12:00 01/10/18 12:13 Temperature 99.6 F Pulse Rate 85 84 Respiratory Rate 16 16 16 Blood Pressure Pulse Oximetry 97 100 100 01/10/18 13:00 01/10/18 14:00 01/10/18 15:00 Temperature Pulse Rate 87 88 92 H Respiratory Rate 10 L 13 16 Blood Pressure Pulse Oximetry 100 99 100 01/10/18 15:48 01/10/18 16:00 01/10/18 17:00 Temperature 100.2 F H Pulse Rate 97 H 101 H 105 H Respiratory Rate 17 16 23 Blood Pressure Pulse Oximetry 99 97 96 01/10/18 18:00 01/10/18 19:00 01/10/18 19:56 Temperature Pulse Rate 102 H 98 H 95 H Respiratory Rate 18 16 16 Blood Pressure Pulse Oximetry 97 99 99 01/10/18 20:00 01/10/18 21:00 01/10/18 21:31 Temperature 98.9 F Pulse Rate 97 H 105 H 104 H Respiratory Rate 16 17 Blood Pressure 108/57 L Pulse Oximetry 99 98 01/10/18 22:00 01/10/18 23:00 01/11/18 00:00 Temperature 99 F Pulse Rate 104 H 114 H 106 H Respiratory Rate 24 18 17 Blood Pressure Pulse Oximetry 97 95 92 L 01/11/18 00:28 01/11/18 00:36 01/11/18 01:00 Temperature Pulse Rate 102 H 103 H Respiratory Rate 17 17 17 Blood Pressure Pulse Oximetry 92 L 95 01/11/18 02:00 01/11/18 03:00 01/11/18 03:28 Temperature Pulse Rate 101 H 101 H 103 H Respiratory Rate 17 17 17 Blood Pressure Pulse Oximetry 96 96 96 01/11/18 04:00 Temperature 101.6 F H Pulse Rate 107 H Respiratory Rate 17 Blood Pressure Pulse Oximetry 97 Intake & Output 01/10/18 01/10/18 01/11/18 06:59 18:59 06:59 Intake Total 790 / 790 1055 / 1055 2041 / 2041 Output Total 850 / 850 1800 / 1800 1294 / 1294 Balance -60 / -60 -745 / -745 747 / 747 Weight 141.6 kg 139.5 kg Intake: IV 550 / 550 400 / 400 1410 / 1410 Versed Inj 50 mg In 50 ml @ 2 50 / 50 50 / 50 50 / 50 MG/HR 2 mls/hr IV.CONT TITRATE PRN Rx#:[id number] Diprivan 1000 mg/100 ml Inj 1, 200 / 200 100 / 100 000 mg In 100 ml @ 5 MCG/KG/MIN 4.293 mls/hr IV.CONT TITRATE PRN Rx#:[id number] 1/2 Normal Saline Inj 1,000 ML 960 / 960 @ 80 mls/hr IV.CONT .[id number] [facility] Rx#:[id number] Ancef 2 GM Premix Inj 2 gm In 50 / 50 100 / 100 50 / 50 50 ml @ 100 mls/hr IV.SIG Q8H [facility] Rx#:[id number] fentaNYL 10 mcg/mL Premix Drip 250 / 250 250 / 250 250 / 250 2,500 mcg In 250 ml @ 50 MCG/HR 5 mls/hr IV.SIG TITRATE PRN Rx #:[id number] Tube Feeding 240 / 240 535 / 535 631 / 631 Tube Irrigant 120 / 120 Output: Urine Amount (Catheter) 850 / 850 1600 / 1600 1225 / 1225 Indwelling Urethral Catheter 850 / 850 1600 / 1600 1225 / 1225 Wound Drainage 160 / 160 55 / 55 # 1 Medial Distal Abdomen 160 / 160 55 / 55 Chest Tube Drainage 0 / 0 40 / 40 #1 Right Mid-Axillary Chest 20 / 20 0 / 0 #2 Left Mid-Axillary Chest 0 / 0 20 / 20 Narrative: Pelvis: dressings clean and dry. intact. +drain. right hip incision dressing bloody - Urinary Catheter Management Indwelling Urethral Catheter Cath placed during this visit: yes Reason for continuing: Hourly intake/output Insertion date: 01/08/18 Insertion time: 00:00 Results - Labs CBC & Chem 7: 01/11/18 06:10 01/10/18 04:31 Laboratory Results - last 24 hr 01/10/18 01/10/18 01/11/18 11:25 18:39 00:17 WBC RBC Hgb Hct MCV MCH MCHC RDW Plt Count MPV Neut % (Auto) Lymph % (Auto) Leon % (Auto) Eos % (Auto) Baso % (Auto) Neut # (Auto) Lymph # (Auto) Leon # (Auto) Eos # (Auto) Baso # (Auto) WBC Differential Differential Comment POC Glucose 128 H 143 H 180 H 01/11/18 01/11/18 05:54 06:10 WBC 5.6 RBC 3.13 L Hgb 8.9 L Hct 27.0 L MCV 86.2 MCH 28.5 MCHC 33.1 RDW 17.1 Plt Count 132 L MPV 8.1 Neut % (Auto) 76.5 H Lymph % (Auto) 10.4 Leon % (Auto) 10.8 H Eos % (Auto) 2.0 Baso % (Auto) 0.3 Neut # (Auto) 4.3 Lymph # (Auto) 0.6 L Leon # (Auto) 0.6 Eos # (Auto) 0.1 Baso # (Auto) 0.0 WBC Differential . 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 Strict nonweightbearing to the right upper extremity. 2. Maintain antibiotics x 48 hours for open fracture prophylaxis. 3. NWB to BLE. 50%WB to LLE for transfers only. 4. With regard to his upper extremity. The patient needs to follow up with Dr. Linn in 2 weeks for transition to a removable splint and to start gentle elbow and wrist range of motion. All questions and concerns were addressed at bedside. A phone call was made to the patient's to review the planned care. A detailed voice message was left. I then unable to communicate with the since time of surgery. Nurse may contact me on my personal cell phone: [phone] when the is available to discuss 5. DC pelvic drain POD 3 6. begin daily dressing changes of pelvis and right hip with xeroform/primapore 7. DVT prophylaxis 8. medical mgmt 9. ortho surgeries complete at this time
[2018-01-11 07:23] LABS: Total Protein 5.2 g/dL (6.4-8.2)
[2018-01-11 07:40] LABS: Creatine Kinase MB 1.5 ng/mL (0.5-3.6)
[2018-01-11] MEDS: Chlorhexidine 0.12% Oral Kit 15 ML UDC OROPHARYNG SCH ×2 (08:10→20:25)
[2018-01-11] MEDS: Calcium/Vitamin D 250/125 MG Tablet PO SCH ×3 (08:21→17:19)
[2018-01-11] MEDS: Senna/Docusate Sodium 8.6/50 MG Tablet PO SCH ×2 (08:22→20:24)
[2018-01-11] MEDS: Sodium Chloride 0.45 % Inj 1,000 ML IV.CONT SCH (11:58)
[2018-01-11] MEDS: Propofol 1000 mg/100 ml Inj 1,000 MG/100 ML BOTTLE IV.CONT PRN ×2 (11:59→21:46)
[2018-01-11] MEDS: Enoxaparin Inj 40 MG/0.4 ML Syringe SQ SCH (13:17)
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
[2018-01-12] MEDS: Pantoprazole Inj 40 MG Vial IV.PUSH SCH (00:22)
[2018-01-12] MEDS: Oral Hygiene Kit OROPHARYNG SCH ×4 (00:22→19:26)
[2018-01-12] MEDS: Enoxaparin Inj 40 MG/0.4 ML Syringe SQ SCH ×2 (00:22→13:16)
[2018-01-12] MEDS: Insulin NovoLOG Aspart Correctional Sugar Inj SQ SCH ×4 (00:22→19:27)
[2018-01-12] MEDS ORDERED: Enoxaparin Inj 30 MG/0.3 ML Syringe SQ SCH (01:00)
[2018-01-12] MEDS: Chlorhexidine Gluconate 2% 1 Pack (2 Cloths) TOPICAL SCH (04:40)
--- NOTE | 2018-01-12 05:18 | XR ---
EXAM DATE: 01/12/2018 12:00 AM EDT AGE/SEX: 47 years / Male INDICATIONS: Shortness of breath. CLINICAL DATA: This is the patient's subsequent encounter. Patient reports that signs and symptoms h ave been present for 4 - 6 days and indicates a pain score of Nonresponsive. MEDICAL/SURGICAL HISTORY: None. . Appendectomy. Chest tube, left. Chest tube, right. COMPARISON: [facility] [place], CHEST 1V SINGLE AP, 01/10/2018. . FINDINGS: ET tube and NG tube are well placed. There are bilateral chest tubes present. A significant pneumotho rax is not seen. There is patchy density identified at the right base in the medial left base. There is mild subcutaneous emphysema. CONCLUSION: Bilateral chest tubes without a significant pneumothorax seen. Bibasilar areas of mild consolidation or atelectasis being worse on the right. Electronically signed by: Marlo Branch MD 01/12/2018 5:16 AM EDT
[2018-01-12 05:45] LABS: ABG Base Excess 4.7 mmol/L (-2-2); ABG PCO2 42 mmHg (38-42); ABG PO2 98 mmHg (61-120)
[2018-01-12] MEDS: fentaNYL 10 mcg/mL Premix Drip 2,500 MCG/250 ML BAG IV.SIG PRN ×2 (06:11→21:38)
[2018-01-12 06:29] LABS: Baso % (Auto) 0.4 % (0.0-2.0); Eos # (Auto) 0.2 th/mm3 (0.0-0.4); Eos % (Auto) 2.9 % (0.0-4.0); Hematocrit 28.5 % (39.0-51.0); Hemoglobin 9.3 gm/dL (13.0-17.0); Lymph # (Auto) 0.7 th/mm3 (1.0-4.8); Mean Corpuscular HGB Conc 32.8 % (32.0-36.0); Mean Corpuscular Hemoglobin 28.7 pg (27.0-34.0); Mean Corpuscular Volume 87.4 fL (80.0-100.0); Mean Platelet Volume 8.4 fL (7.0-11.0); Mono # (Auto) 0.8 th/mm3 (0.0-0.9); Mono % (Auto) 11.7 % (0.0-8.0); Neut # (Auto) 5.3 th/mm3 (1.8-7.7); Platelet Count 157 th/mm3 (150-450); Red Blood Count 3.26 mil/mm3 (4.50-5.90); Red Cell Distribution Width 17.4 % (11.6-17.2)
[2018-01-12 07:04] LABS: Calcium 7.4 mg/dL (8.5-10.1); Carbon Dioxide 31.3 meq/L (21.0-32.0); Potassium 3.7 meq/L (3.5-5.1)
[2018-01-12 07:16] LABS: Total Protein 5.7 g/dL (6.4-8.2)
--- NOTE | 2018-01-12 07:39 | P.PNOP ---
Subjective Interval history: POD 3 s/p ORIF pubic symphysis and right SI joint s/p ORIF right BBFA by Dr Arriaga intubated. sedated. nurse was reporting foul odor from right arm splint. Physical Exam Vital signs: Vital Signs 01/11/18 08:00 01/11/18 09:00 01/11/18 10:00 Temperature 99.0 F Pulse Rate 101 H 97 H 93 H Respiratory Rate 17 16 17 Blood Pressure Pulse Oximetry 96 95 96 01/11/18 11:00 01/11/18 12:00 01/11/18 12:56 Temperature 98.8 F Pulse Rate 91 H 91 H 98 H Respiratory Rate 16 16 19 Blood Pressure Pulse Oximetry 97 97 100 01/11/18 13:00 01/11/18 14:00 01/11/18 15:00 Temperature Pulse Rate 101 H 112 H 111 H Respiratory Rate 19 21 17 Blood Pressure Pulse Oximetry 100 97 97 01/11/18 15:23 01/11/18 16:00 01/11/18 16:21 Temperature Pulse Rate 109 H 99 H 95 H Respiratory Rate 16 16 15 Blood Pressure 156/73 H 132/58 L 126/58 L Pulse Oximetry 97 95 96 01/11/18 16:58 01/11/18 17:00 01/11/18 17:21 Temperature Pulse Rate 94 H 94 H 96 H Respiratory Rate 16 16 16 Blood Pressure 130/69 Pulse Oximetry 100 100 98 01/11/18 18:00 01/11/18 18:21 01/11/18 19:00 Temperature Pulse Rate 99 H 97 H 94 H Respiratory Rate 17 16 16 Blood Pressure 120/59 L Pulse Oximetry 99 96 99 01/11/18 19:21 01/11/18 19:46 01/11/18 20:00 Temperature 101.1 F H Pulse Rate 102 H 105 H 107 H Respiratory Rate 18 16 17 Blood Pressure 181/85 H 170/69 H Pulse Oximetry 100 99 99 01/11/18 20:15 01/11/18 20:21 01/11/18 21:00 Temperature Pulse Rate 105 H 101 H 104 H Respiratory Rate 17 15 16 Blood Pressure 152/70 H Pulse Oximetry 97 97 01/11/18 21:21 01/11/18 22:00 01/11/18 22:21 Temperature Pulse Rate 102 H 97 H 95 H Respiratory Rate 15 16 16 Blood Pressure 156/77 H 142/62 H Pulse Oximetry 97 97 98 01/11/18 22:44 01/11/18 23:00 01/11/18 23:21 Temperature Pulse Rate 108 H 114 H Respiratory Rate 15 19 17 Blood Pressure 165/75 H Pulse Oximetry 96 97 95 01/12/18 00:00 01/12/18 00:21 01/12/18 01:00 Temperature 100.7 F H Pulse Rate 108 H 108 H 97 H Respiratory Rate 16 15 14 Blood Pressure 167/74 H Pulse Oximetry 95 96 96 01/12/18 01:21 01/12/18 01:24 01/12/18 02:00 Temperature Pulse Rate 96 H 103 H Respiratory Rate 14 13 16 Blood Pressure 141/60 H Pulse Oximetry 96 99 97 01/12/18 02:21 01/12/18 03:00 01/12/18 03:21 Temperature Pulse Rate 107 H 104 H 104 H Respiratory Rate 16 16 15 Blood Pressure 153/70 H 146/65 H Pulse Oximetry 97 97 97 01/12/18 03:33 01/12/18 04:00 Temperature 98.7 F Pulse Rate 99 H 105 H Respiratory Rate 15 20 Blood Pressure Pulse Oximetry 97 100 Intake & Output 01/11/18 01/12/18 01/12/18 18:59 06:59 18:59 Intake Total 1015 / 1015 950 / 950 Output Total 3020 / 3020 895 / 895 Balance -2004 / -2004 55 / 55 Weight 143.4 kg Intake: IV 350 / 350 350 / 350 Diprivan 1000 mg/100 ml Inj 1, 100 / 100 100 / 100 000 mg In 100 ml @ 5 MCG/KG/MIN 4.293 mls/hr IV.CONT TITRATE PRN Rx#:[id number] fentaNYL 10 mcg/mL Premix Drip 250 / 250 250 / 250 2,500 mcg In 250 ml @ 50 MCG/HR 5 mls/hr IV.SIG TITRATE PRN Rx #:[id number] Tube Feeding 665 / 665 600 / 600 Output: Urine Amount (Catheter) 2950 / 2950 875 / 875 Indwelling Urethral Catheter 2950 / 2950 875 / 875 Wound Drainage 50 / 50 10 / 10 # 1 Medial Distal Abdomen 50 / 50 10 / 10 Chest Tube Drainage 20 / 20 10 / 10 #1 Right Mid-Axillary Chest 0 / 0 0 / 0 #2 Left Mid-Axillary Chest Narrative: Pelvis: dressings clean and dry. intact. + drain. minimal drainage RUE: +long arm splint. intact. removed and wounds visualized. clean and dry. no drainage. no erythema. no discoloration. no odor. good cap refill - Urinary Catheter Management Indwelling Urethral Catheter Cath placed during this visit: yes Reason for continuing: Hourly intake/output Insertion date: 01/08/18 Insertion time: 00:00 Results - Labs CBC & Chem 7: 01/12/18 06:00 01/12/18 06:00 Laboratory Results - last 24 hr 01/11/18 01/11/18 01/11/18 06:10 13:33 17:47 WBC RBC Hgb Hct MCV MCH MCHC RDW Plt Count MPV Neut % (Auto) Lymph % (Auto) [place] % (Auto) Eos % (Auto) Baso % (Auto) Neut # (Auto) Lymph # (Auto) [place] # (Auto) Eos # (Auto) Baso # (Auto) WBC Differential Differential Comment Puncture Site Patient Temperature O2 Saturation ABG pH ABG pCO2 ABG pO2 ABG HCO3 ABG O2 Content ABG Base Excess ABG Methemoglobin Hemoglobin Carboxyhemoglobin O2 Delivery Device Vent Setting Inspired O2 Critical Value Sodium Potassium Chloride Carbon Dioxide Anion Gap BUN Creatinine Estimated GFR POC Glucose 156 H 40 L* Random Glucose Calcium Prot Corrected Calcium Total Creatine Kinase CK-MB (CK-2) 1.5 CK-MB (CK-2) % 0.0 Total Protein 01/11/18 01/12/18 01/12/18 17:50 00:16 05:35 WBC RBC Hgb Hct MCV MCH MCHC RDW Plt Count MPV Neut % (Auto) Lymph % (Auto) [place] % (Auto) Eos % (Auto) Baso % (Auto) Neut # (Auto) Lymph # (Auto) [place] # (Auto) Eos # (Auto) Baso # (Auto) WBC Differential Differential Comment Puncture Site Art line Patient Temperature 98.6 O2 Saturation 96 ABG pH 7.45 H ABG pCO2 42 ABG pO2 98 ABG HCO3 29 H ABG O2 Content 13.7 ABG Base Excess 4.7 H ABG Methemoglobin 1.1 Hemoglobin 10.1 L Carboxyhemoglobin 1.4 O2 Delivery Device Ventilator Vent Setting Prvc/ac Inspired O2 40 Critical Value No Sodium Potassium Chloride Carbon Dioxide Anion Gap BUN Creatinine Estimated GFR POC Glucose 144 H 192 H Random Glucose Calcium Prot Corrected Calcium Total Creatine Kinase CK-MB (CK-2) CK-MB (CK-2) % Total Protein 01/12/18 01/12/18 01/12/18 05:51 06:00 06:00 WBC 7.0 RBC 3.26 L Hgb 9.3 L Hct 28.5 L MCV 87.4 MCH 28.7 MCHC 32.8 RDW 17.4 H Plt Count 157 MPV 8.4 Neut % (Auto) 75.0 H Lymph % (Auto) 10.0 [place] % (Auto) 11.7 H Eos % (Auto) 2.9 Baso % (Auto) 0.4 Neut # (Auto) 5.3 Lymph # (Auto) 0.7 L [place] # (Auto) 0.8 Eos # (Auto) 0.2 Baso # (Auto) 0.0 WBC Differential . Differential Comment Auto diff final Puncture Site Patient Temperature O2 Saturation ABG pH ABG pCO2 ABG pO2 ABG HCO3 ABG O2 Content ABG Base Excess ABG Methemoglobin Hemoglobin Carboxyhemoglobin O2 Delivery Device Vent Setting Inspired O2 Critical Value Sodium 149 H Potassium 3.7 Chloride 114 H Carbon Dioxide 31.3 Anion Gap 4 L BUN 19 H Creatinine 1.23 Estimated GFR 63 L POC Glucose 143 H Random Glucose 143 H Calcium 7.4 L* Prot Corrected Calcium 8.2 L Total Creatine Kinase 4055 H CK-MB (CK-2) CK-MB (CK-2) % Total Protein 5.7 L - Imaging Impressions Ankle X-Ray 01/11/18 00:00 CONCLUSION: Soft tissue swelling. No acute fracture or joint dislocation. Chest X-Ray 01/12/18 00:00 CONCLUSION: Bilateral chest tubes without a significant pneumothorax seen. Bibasilar areas of mild consolidation or atelectasis being worse on the right. Assessment and Plan - Assessment and Plan 1) Right radius and ulna, open fractures, type I, status post right radius and ulna open reduction internal fixation by Dr Arriaga - Strict nonweightbearing to the right upper extremity. - Maintain antibiotics x 48 hours for open fracture prophylaxis. -Follow up with Dr. Linn in 2 weeks for transition to a removable splint and to start gentle elbow and wrist range of motion -splint removed today for eval of wounds. 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 ok for 50%WB to LLE for transfers only -daily dressing changes with xeroform/primapore -DC drain today -DVT prophylaxis -medical mgmt -follow up with Yi or NADINE in 2 weeks for recheck of pelvis -ortho surgeries complete at this time
[2018-01-12 07:41] LABS: Creatine Kinase MB 1.4 ng/mL (0.5-3.6)
[2018-01-12] MEDS: Chlorhexidine 0.12% Oral Kit 15 ML UDC OROPHARYNG SCH ×2 (08:49→21:30)
[2018-01-12] MEDS: Calcium/Vitamin D 250/125 MG Tablet PO SCH ×3 (09:22→19:26)
[2018-01-12] MEDS: Senna/Docusate Sodium 8.6/50 MG Tablet PO SCH ×2 (09:22→21:30)
--- NOTE | 2018-01-12 12:30 | CT ---
EXAM DATE: 01/12/2018 12:21 PM EDT AGE/SEX: 47 years / Male INDICATIONS: Evaluate right chest tube placement. CLINICAL DATA: This is the patient's subsequent encounter. Patient reports that signs and symptoms h ave been present for 4 - 6 days and indicates a pain score of Nonresponsive. MEDICAL/SURGICAL HISTORY: Non-responsive. Non-responsive. RADIATION DOSE: 23.30 CTDI (mGy) [place] [facility] [place]. . TECHNIQUE: Multiple contiguous axial images were obtained through the chest without contrast. Image s were obtained in suspended respiration using multiple row detector helical technique. Using automa elvin exposure control and adjustment of the mA and/or kV according to patient size, radiation dose was kept as low as reasonably achievable to obtain optimal diagnostic quality images. DICOM format imag e data is available electronically for review and comparison. FINDINGS: Lungs: Interval placement of bilateral thoracostomy tubes with resolution of the previously seen lexx ateral pneumothoraces. There is minimal air identified anteriorly in the right lower chest. The right -sided tube projects over the right hemidiaphragm and a left-sided tube is identified with the tip ad jacent to the left hilum of the lung. Bibasilar atelectatic changes.. Mediastinum: There is good visualization of the great vessels of the middle mediastinum. No evidenc e of mediastinal or hilar adenopathy/mass. Pleurae: No evidence of focal thickening or pleural effusion. Axillae: Unremarkable. Bony Structures: Unremarkable. Miscellaneous: The examination was extended to include the upper abdomen, and both adrenal glands ar e normal in size and configuration. The tissue emphysematous changes are seen about the hemithoraces bilaterally. This is most prominent anteriorly and left lateral. There is a right subclavian central venous access with the tip barely in the subclavian vein. CONCLUSION: 1. Bilateral thoracostomy tubes. On the right, the tube is identified just above the hemidiaphragm a nd projects posteriorly. On the left, the tube tip is positioned at the hilum of the left lung. 2. Previously seen bilateral pneumothoraces have resolved. There is a very small amount of air ident ified just anterior to the right lower lobe. 3. Stable bibasilar atelectatic changes with air bronchograms. 4. Right-sided venous access is identified with the tip barely in the right subclavian vein. 5. Deep tissue emphysematous changes about both hemithoraces. Electronically signed by: Shantanu Jacobs MD 01/12/2018 12:29 PM EDT
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
[2018-01-12] MEDS: Acetaminophen 325 MG Tablet PO PRN (21:27)
[2018-01-12] MEDS: Dexmedetomidine Inj 200 MCG in Sodium Chlor 0.9% Inj 48 ML IV.CONT PRN (23:00)
[2018-01-13] MEDS: Insulin NovoLOG Aspart Correctional Sugar Inj SQ SCH ×4 (01:48→18:26)
[2018-01-13] MEDS: Enoxaparin Inj 30 MG/0.3 ML Syringe SQ SCH ×2 (01:49→13:11)
[2018-01-13] MEDS: Oral Hygiene Kit OROPHARYNG SCH ×4 (01:49→17:56)
[2018-01-13] MEDS: Pantoprazole Inj 40 MG Vial IV.PUSH SCH (01:50)
[2018-01-13] MEDS: Dexmedetomidine Inj 200 MCG in Sodium Chlor 0.9% Inj 48 ML IV.CONT PRN ×4 (03:36→09:15)
--- NOTE | 2018-01-13 03:59 | XR ---
EXAM DATE: 01/13/2018 3:54 AM EDT AGE/SEX: 47 years / Male INDICATIONS: Respiratory disease. CLINICAL DATA: This is the patient's subsequent encounter. Patient reports that signs and symptoms h ave been present for 4 - 6 days and indicates a pain score of Nonresponsive. MEDICAL/SURGICAL HISTORY: None. . Appendectomy. Chest tube, left. Chest tube, right. COMPARISON: [facility] [place], CHEST 1V SINGLE AP, 01/12/2018. [facility] [place], CT CHEST W/O CONTRAST, 01/12/2018. . FINDINGS: Bilateral chest tubes stable in position. Persistent and stable consolidation in the medial lower lester gs, left greater than right. The upper lungs are clear. Stable subcutaneous emphysema about the upper chest bilaterally. The ET tube tip well above the melissa. Gastric tube traverses the [id number]. CONCLUSION: Stable bilateral lower lung consolidation and multiple lines and tubes. Electronically signed by: Enrique Ward MD 01/13/2018 3:57 AM EDT
[2018-01-13] MEDS: Acetaminophen 325 MG Tablet PO PRN ×2 (05:50→13:11)
[2018-01-13 05:54] LABS: Hematocrit 27.8 % (39.0-51.0); Hemoglobin 9.6 gm/dL (13.0-17.0); Mean Corpuscular HGB Conc 34.6 % (32.0-36.0); Mean Corpuscular Hemoglobin 29.4 pg (27.0-34.0); Mean Corpuscular Volume 85.1 fL (80.0-100.0); Red Blood Count 3.27 mil/mm3 (4.50-5.90); White Blood Count 6.9 th/mm3 (4.0-11.0)
[2018-01-13 05:55] LABS: Baso % (Auto) 0.3 % (0.0-2.0); Eos # (Auto) 0.2 th/mm3 (0.0-0.4); Eos % (Auto) 2.8 % (0.0-4.0); Lymph # (Auto) 0.8 th/mm3 (1.0-4.8); Lymph % (Auto) 10.9 % (9.0-44.0); Mean Platelet Volume 8.7 fL (7.0-11.0); Mono # (Auto) 0.9 th/mm3 (0.0-0.9); Neut # (Auto) 5.1 th/mm3 (1.8-7.7); Platelet Count 183 th/mm3 (150-450); Red Cell Distribution Width 16.7 % (11.6-17.2)
[2018-01-13 06:03] LABS: ABG PCO2 43 mmHg (38-42); ABG PO2 125 mmHg (61-120)
[2018-01-13 06:10] LABS: Calcium 7.5 mg/dL (8.5-10.1); Carbon Dioxide 26.7 meq/L (21.0-32.0); Potassium 4.2 meq/L (3.5-5.1)
[2018-01-13 07:33] LABS: Eosinophils 1 % (0-4); Lymphocytes 7 % (9-44); Monocytes 13 % (0-8); Platelet Estimate Normal (Normal); Platelet Morphology Normal (Normal); Stomatocytes 1+; Tallied Nucleated RBC 2 (0-0)
[2018-01-13] MEDS ORDERED: Bisacodyl 10 MG Supp RECTAL ONE (09:00)
[2018-01-13] MEDS: Chlorhexidine 0.12% Oral Kit 15 ML UDC OROPHARYNG SCH (09:14)
[2018-01-13] MEDS: Senna/Docusate Sodium 8.6/50 MG Tablet PO SCH ×2 (09:15→20:11)
[2018-01-13] MEDS: Calcium/Vitamin D 250/125 MG Tablet PO SCH ×4 (09:15→17:57)
[2018-01-13] MEDS: fentaNYL 10 mcg/mL Premix Drip 2,500 MCG/250 ML BAG IV.SIG PRN (09:16)
--- NOTE | 2018-01-13 10:58 | P.PNOP ---
Subjective Interval history: Sitting up and intubated. Physical Exam Vital signs: Vital Signs 01/12/18 11:00 01/12/18 11:37 01/12/18 12:00 Temperature Pulse Rate 101 H 108 H Respiratory Rate 13 15 39 H Blood Pressure 133/62 181/85 H Pulse Oximetry 94 L 95 100 01/12/18 12:35 01/12/18 13:00 01/12/18 14:00 Temperature Pulse Rate 110 H 104 H 108 H Respiratory Rate 19 15 16 Blood Pressure 129/67 141/66 H 152/76 H Pulse Oximetry 95 97 97 01/12/18 15:00 01/12/18 16:00 01/12/18 16:35 Temperature Pulse Rate 105 H 103 H Respiratory Rate 13 13 14 Blood Pressure 151/70 H 149/67 H Pulse Oximetry 97 97 97 01/12/18 20:00 01/12/18 20:18 01/12/18 21:00 Temperature 101.3 F H Pulse Rate 104 H 104 H Respiratory Rate 12 18 Blood Pressure 153/75 H 153/75 H Pulse Oximetry 98 97 01/12/18 22:58 01/13/18 00:00 01/13/18 00:13 Temperature 100.9 F H Pulse Rate 93 H Respiratory Rate 13 20 Blood Pressure 134/60 Pulse Oximetry 97 98 01/13/18 03:53 01/13/18 04:00 01/13/18 07:53 Temperature 101.9 F H Pulse Rate 78 Respiratory Rate 14 14 23 Blood Pressure 118/61 Pulse Oximetry 95 97 40 L 01/13/18 08:00 01/13/18 09:00 Temperature 99.8 F H Pulse Rate 87 82 Respiratory Rate 21 Blood Pressure 117/59 L Pulse Oximetry 96 Intake & Output 01/12/18 01/13/18 01/13/18 18:59 06:59 18:59 Intake Total 479 / 479 735 / 735 1400 / 1400 Output Total 2300 / 2300 1120 / 1120 Balance -1821 / -1821 -385 / -385 1400 / 1400 Weight 134 kg Intake: IV 250 / 250 150 / 150 1400 / 1400 Precedex Inj 200 MCG In NS Inj 150 / 150 50 / 50 48 ML @ 0.2 MCG/KG/HR 7.17 mls/ hr IV.CONT TITRATE PRN Rx#: [id number] fentaNYL 10 mcg/mL Premix Drip 250 / 250 250 / 250 2,500 mcg In 250 ml @ 50 MCG/HR 5 mls/hr IV.SIG TITRATE PRN Rx #:[id number] Tube Feeding 229 / 229 465 / 465 Tube Irrigant 120 / 120 Output: Urine Amount (Catheter) 2300 / 2300 1100 / 1100 Indwelling Urethral Catheter 2300 / 2300 1100 / 1100 Chest Tube Drainage 0 / 0 20 / 20 #1 Right Mid-Axillary Chest 0 / 0 0 / 0 #2 Left Mid-Axillary Chest 0 / 0 20 / 20 Other: # Bowel Movements 0 Narrative: Clean dry dressings intact over abdomen. No significant pain with movement or laxity of bilateral lower extremities. He is able to actively dorsiflex and plantarflex his feet. He has intact distal pulses and good capillary refills - Urinary Catheter Management Indwelling Urethral Catheter Cath placed during this visit: yes Reason for continuing: Hourly intake/output Insertion date: 01/08/18 Insertion time: 00:00 Results - Labs CBC & Chem 7: 01/13/18 05:00 01/13/18 05:00 Laboratory Results - last 24 hr 01/12/18 01/12/18 01/13/18 13:28 19:28 01:37 WBC RBC Hgb Hct MCV MCH MCHC RDW Plt Count MPV Prelim Diff (Auto) Neut % (Auto) Lymph % (Auto) [place] % (Auto) Eos % (Auto) Baso % (Auto) Neut # (Auto) Lymph # (Auto) [place] # (Auto) Eos # (Auto) Baso # (Auto) WBC Differential Seg Neuts % (Manual) Band Neuts % (Manual) Lymphocytes % (Manual) Monocytes % (Manual) Eosinophils % (Manual) Abs Neuts (Manual) Nucleated RBCs/100 WBC Differential Comment Platelet Estimate Platelet Morphology Stomatocytes Puncture Site Patient Temperature O2 Saturation ABG pH ABG pCO2 ABG pO2 ABG HCO3 ABG O2 Content ABG Base Excess ABG Methemoglobin Hemoglobin Carboxyhemoglobin O2 Delivery Device Vent Setting Inspired O2 Critical Value Sodium Potassium Chloride Carbon Dioxide Anion Gap BUN Creatinine Estimated GFR POC Glucose 116 H 133 H 130 H Random Glucose Calcium 01/13/18 01/13/18 01/13/18 05:00 05:00 05:53 WBC 6.9 RBC 3.27 L Hgb 9.6 L Hct 27.8 L MCV 85.1 MCH 29.4 MCHC 34.6 RDW 16.7 Plt Count 183 MPV 8.7 Prelim Diff (Auto) Slide review pending Neut % (Auto) 73.0 H Lymph % (Auto) 10.9 [place] % (Auto) 13.0 H Eos % (Auto) 2.8 Baso % (Auto) 0.3 Neut # (Auto) 5.1 Lymph # (Auto) 0.8 L [place] # (Auto) 0.9 Eos # (Auto) 0.2 Baso # (Auto) 0.0 WBC Differential Manual diff final Seg Neuts % (Manual) 55 Band Neuts % (Manual) 24 H Lymphocytes % (Manual) 7 L Monocytes % (Manual) 13 H Eosinophils % (Manual) 1 Abs Neuts (Manual) 5.5 Nucleated RBCs/100 WBC 2 H Differential Comment . Platelet Estimate Normal Platelet Morphology Normal Stomatocytes 1+ H Puncture Site [place] Patient Temperature 98.6 O2 Saturation 96 ABG pH 7.45 H ABG pCO2 43 H ABG pO2 125 H ABG HCO3 29 H ABG O2 Content 20.1 H ABG Base Excess 5.0 H ABG Methemoglobin 1.2 Hemoglobin 14.8 Carboxyhemoglobin 1.4 O2 Delivery Device Ventilator Vent Setting See comment Inspired O2 40 Critical Value No Sodium 150 H Potassium 4.2 Chloride 116 H Carbon Dioxide 26.7 Anion Gap 7 BUN 26 H Creatinine 1.33 H Estimated GFR 58 L POC Glucose Random Glucose 162 H Calcium 7.5 L - Imaging Impressions Chest CT 01/12/18 00:00 CONCLUSION: 1. Bilateral thoracostomy tubes. On the right, the tube is identified just above the hemidiaphragm and projects posteriorly. On the left, the tube tip is positioned at the hilum of the left lung. 2. Previously seen bilateral pneumothoraces have resolved. There is a very small amount of air identified just anterior to the right lower lobe. 3. Stable bibasilar atelectatic changes with air bronchograms. 4. Right-sided venous access is identified with the tip barely in the right subclavian vein. 5. Deep tissue emphysematous changes about both hemithoraces. Chest X-Ray 01/13/18 06:00 CONCLUSION: Stable bilateral lower lung consolidation and multiple lines and tubes. Assessment and Plan - Assessment and Plan 1) Right radius and ulna, open fractures, type I, status post right radius and ulna open reduction internal fixation by Dr Arriaga - Strict nonweightbearing to the right upper extremity. - Maintain antibiotics x 48 hours for open fracture prophylaxis. -Follow up with Dr. 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 ok for 50%WB to LLE for transfers only -daily dressing changes with xeroform/primapore -DVT prophylaxis -medical mgmt -follow up with Yi or NADINE in 2 weeks for recheck of pelvis -ortho surgeries complete at this time
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
[2018-01-14] MEDS: Insulin NovoLOG Aspart Correctional Sugar Inj SQ SCH ×2 (01:47→06:25)
[2018-01-14] MEDS: Oral Hygiene Kit OROPHARYNG SCH ×4 (01:48→16:58)
[2018-01-14] MEDS: Enoxaparin Inj 30 MG/0.3 ML Syringe SQ SCH ×2 (01:48→13:37)
[2018-01-14] MEDS: Pantoprazole Inj 40 MG Vial IV.PUSH SCH ×2 (01:48→23:59)
--- NOTE | 2018-01-14 04:51 | XR ---
EXAM DATE: 01/14/2018 4:36 AM EDT AGE/SEX: 47 years / Male INDICATIONS: Respiratory distress. CLINICAL DATA: This is the patient's subsequent encounter. Patient reports that signs and symptoms h ave been present for 1 week and indicates a pain score of Nonresponsive. MEDICAL/SURGICAL HISTORY: Non-responsive. Appendectomy. Chest tube, left. Chest tube, right. COMPARISON: [facility], CHEST 1V SINGLE AP, 01/13/2018. . FINDINGS: Interval extubation and removal of gastric tube. Bilateral chest tubes stable in position. No evidenc e of pneumothorax. Patchy areas of infiltrate left lower lung stable from prior. The upper lungs are clear. The heart is normal in size. CONCLUSION: Stable left lower lung infiltrate and slightly improved right lower lung infiltrate. Electronically signed by: Enrique Ward MD 01/14/2018 4:49 AM EDT
[2018-01-14 05:21] LABS: Baso % (Auto) 0.5 % (0.0-2.0); Eos # (Auto) 0.2 th/mm3 (0.0-0.4); Eos % (Auto) 1.8 % (0.0-4.0); Hematocrit 32.4 % (39.0-51.0); Hemoglobin 10.6 gm/dL (13.0-17.0); Lymph % (Auto) 11.9 % (9.0-44.0); Mean Corpuscular HGB Conc 32.7 % (32.0-36.0); Mean Corpuscular Hemoglobin 28.4 pg (27.0-34.0); Mean Corpuscular Volume 86.9 fL (80.0-100.0); Mean Platelet Volume 8.8 fL (7.0-11.0); Mono % (Auto) 11.6 % (0.0-8.0); Neut # (Auto) 6.5 th/mm3 (1.8-7.7); Neut % (Auto) 74.2 % (16.0-70.0); Platelet Count 216 th/mm3 (150-450); Red Blood Count 3.72 mil/mm3 (4.50-5.90); Red Cell Distribution Width 17.3 % (11.6-17.2); White Blood Count 8.7 th/mm3 (4.0-11.0)
[2018-01-14 05:58] LABS: Alanine Aminotransferase 65 U/L (12-78); Albumin 2.1 g/dL (3.4-5.0); Alkaline Phosphatase 55 U/L (45-117); Anion Gap 8 meq/L (5-15); Aspartate Aminotransferase 96 U/L (15-37); Blood Urea Nitrogen 29 mg/dL (7-18); Calcium 7.9 mg/dL (8.5-10.1); Carbon Dioxide 28.7 meq/L (21.0-32.0); Chloride 115 meq/L (98-107); Glomerular Filtration Rate 59 mL/min (>89); Glucose,Random 126 mg/dL (74-106); Potassium 3.4 meq/L (3.5-5.1); Sodium 152 meq/L (136-145); Total Protein 6.2 g/dL (6.4-8.2)
[2018-01-14 06:22] LABS: Eosinophils 2 % (0-4); Lymphocytes 11 % (9-44); Monocytes 11 % (0-8)
[2018-01-14 06:23] LABS: Ovalocytes 1+; Platelet Estimate Normal (Normal); Platelet Morphology Normal (Normal)
[2018-01-14] MEDS: Calcium/Vitamin D 250/125 MG Tablet PO SCH ×3 (09:12→18:15)
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
[2018-01-14] MEDS: ALPRAZolam 0.25 MG Tablet PO PRN ×2 (11:37→21:16)
[2018-01-14] MEDS: Senna/Docusate Sodium 8.6/50 MG Tablet PO SCH ×2 (11:41→20:56)
--- NOTE | 2018-01-14 21:44 | XR ---
EXAM DATE: 01/14/2018 9:39 PM EDT AGE/SEX: 47 years / Male INDICATIONS: Chest tube removal. CLINICAL DATA: This is the patient's subsequent encounter. Patient reports that signs and symptoms h ave been present for 2 weeks and indicates a pain score of Nonresponsive. MEDICAL/SURGICAL HISTORY: None. None. COMPARISON: [facility] [place] 1V SINGLE AP, 01/14/2018. . FINDINGS: Previous chest tube has been removed. There is no pneumothorax. Basilar airspace disease is stable. H eart size enlarged. CONCLUSION: Removal of previous right chest tube without pneumothorax. Electronically signed by: Jeremy Martinez MD 01/14/2018 9:42 PM EDT
[2018-01-14] MEDS: Morphine Sulfate Inj 2 MG/ML Vial IV.PUSH PRN (21:54)
[2018-01-15] MEDS: Enoxaparin Inj 30 MG/0.3 ML Syringe SQ SCH
[2018-01-15 05:08] LABS: Baso % (Auto) 0.5 % (0.0-2.0); Eos # (Auto) 0.2 th/mm3 (0.0-0.4); Hematocrit 32.7 % (39.0-51.0); Hemoglobin 10.6 gm/dL (13.0-17.0); Lymph # (Auto) 1.1 th/mm3 (1.0-4.8); Lymph % (Auto) 10.8 % (9.0-44.0); Mean Corpuscular HGB Conc 32.4 % (32.0-36.0); Mean Corpuscular Hemoglobin 28.1 pg (27.0-34.0); Mean Corpuscular Volume 86.9 fL (80.0-100.0); Mean Platelet Volume 9.1 fL (7.0-11.0); Mono # (Auto) 1.2 th/mm3 (0.0-0.9); Mono % (Auto) 11.7 % (0.0-8.0); Neut # (Auto) 7.5 th/mm3 (1.8-7.7); Platelet Count 226 th/mm3 (150-450); Red Blood Count 3.76 mil/mm3 (4.50-5.90); Red Cell Distribution Width 16.8 % (11.6-17.2)
[2018-01-15 05:34] LABS: Albumin 2.1 g/dL (3.4-5.0); Anion Gap 7 meq/L (5-15); Aspartate Aminotransferase 70 U/L (15-37); Blood Urea Nitrogen 28 mg/dL (7-18); Calcium 7.9 mg/dL (8.5-10.1); Carbon Dioxide 26.6 meq/L (21.0-32.0); Chloride 116 meq/L (98-107); Glomerular Filtration Rate 61 mL/min (>89); Glucose,Random 173 mg/dL (74-106); Potassium 3.7 meq/L (3.5-5.1); Sodium 150 meq/L (136-145)
[2018-01-15 05:35] LABS: Alanine Aminotransferase 68 U/L (12-78)
[2018-01-15 05:37] LABS: Alkaline Phosphatase 57 U/L (45-117); Total Protein 6.1 g/dL (6.4-8.2)
[2018-01-15 05:39] LABS: Eosinophils 1 % (0-4); Lymphocytes 12 % (9-44); Metamyelocytes 2 % (0-1); Monocytes 8 % (0-8); Myelocytes 1 % (0-0); Platelet Estimate Normal (Normal); Platelet Morphology Normal (Normal); RBC Morphology Normal (Normal); Tallied Nucleated RBC 2 (0-0)
[2018-01-15] MEDS: Oral Hygiene Kit OROPHARYNG SCH ×3 (06:01→13:06)
--- NOTE | 2018-01-15 06:06 | XR ---
EXAM DATE: 01/15/2018 5:50 AM EDT AGE/SEX: 47 years / Male INDICATIONS: Shortness of breath, chest pain. CLINICAL DATA: This is the patient's subsequent encounter. Patient reports that signs and symptoms h ave been present for 1 week and indicates a pain score of 3/10. MEDICAL/SURGICAL HISTORY: None. Appendectomy. Chest tube, left. Chest tube, right. Pelvic ngo rgery. COMPARISON: [facility], CHEST 1V SINGLE AP, 01/14/2018. . FINDINGS: There are patchy areas of airspace opacity in the lower lungs, left greater than right, similar to pr ior. No evidence of pneumothorax. The heart is normal for AP semierect technique. CONCLUSION: Stable bibasilar airspace disease, left greater than right. Electronically signed by: Enrique Ward MD 01/15/2018 6:05 AM EDT
[2018-01-15] MEDS: Calcium/Vitamin D 250/125 MG Tablet PO SCH ×3 (09:26→18:10)
[2018-01-15] MEDS: Senna/Docusate Sodium 8.6/50 MG Tablet PO SCH ×2 (09:27→20:23)
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
[2018-01-15] MEDS: Enoxaparin Inj 40 MG/0.4 ML Syringe SQ SCH (13:24)
[2018-01-15] MEDS: Morphine Sulfate Inj 2 MG/ML Vial IV.PUSH PRN (20:23)
[2018-01-15] MEDS: ALPRAZolam 0.25 MG Tablet PO PRN (21:54)
[2018-01-16] MEDS: Pantoprazole Inj 40 MG Vial IV.PUSH SCH (01:41)
[2018-01-16] MEDS: Enoxaparin Inj 40 MG/0.4 ML Syringe SQ SCH ×2 (01:41→13:19)
--- NOTE | 2018-01-16 06:31 | XR ---
EXAM DATE: 01/16/2018 6:20 AM EDT AGE/SEX: 47 years / Male INDICATIONS: Follow up trauma, short of breath CLINICAL DATA: This is the patient's subsequent encounter. Patient reports that signs and symptoms h ave been present for 2 weeks and indicates a pain score of 7/10. MEDICAL/SURGICAL HISTORY: . right arm and pelvis fractures Appendectomy. right arm and pelvis, bilateral chest tubes placed and removed COMPARISON: [facility] – [place], CHEST 1V SINGLE AP, 01/15/2018. . FINDINGS: Left greater than right parenchymal consolidation at the bases again noted and not significantly galloway ged. No large effusions seen. No pneumothorax. Heart size stable, upper limits of normal. CONCLUSION: No significant change left greater than right basilar infiltrates. Electronically signed by: Marlo Jaems MD 01/16/2018 6:30 AM EDT
[2018-01-16 07:10] LABS: Baso % (Auto) 0.3 % (0.0-2.0); Eos # (Auto) 0.3 th/mm3 (0.0-0.4); Hematocrit 29.1 % (39.0-51.0); Hemoglobin 9.4 gm/dL (13.0-17.0); Lymph # (Auto) 1.1 th/mm3 (1.0-4.8); Lymph % (Auto) 9.9 % (9.0-44.0); Mean Corpuscular HGB Conc 32.4 % (32.0-36.0); Mean Corpuscular Hemoglobin 28.5 pg (27.0-34.0); Mean Corpuscular Volume 87.9 fL (80.0-100.0); Mean Platelet Volume 8.8 fL (7.0-11.0); Mono # (Auto) 0.8 th/mm3 (0.0-0.9); Mono % (Auto) 7.4 % (0.0-8.0); Neut % (Auto) 79.4 % (16.0-70.0); Platelet Count 177 th/mm3 (150-450); Red Blood Count 3.31 mil/mm3 (4.50-5.90); Red Cell Distribution Width 16.8 % (11.6-17.2); White Blood Count 11.3 th/mm3 (4.0-11.0)
[2018-01-16 07:34] LABS: Anion Gap 8 meq/L (5-15); Aspartate Aminotransferase 64 U/L (15-37); Blood Urea Nitrogen 24 mg/dL (7-18); Calcium 7.6 mg/dL (8.5-10.1); Carbon Dioxide 27.3 meq/L (21.0-32.0); Chloride 112 meq/L (98-107); Glomerular Filtration Rate 69 mL/min (>89); Potassium 3.5 meq/L (3.5-5.1); Sodium 147 meq/L (136-145)
[2018-01-16 07:39] LABS: Alanine Aminotransferase 65 U/L (12-78); Alkaline Phosphatase 54 U/L (45-117); Glucose,Random 103 mg/dL (74-106); Total Protein 5.1 g/dL (6.4-8.2)
[2018-01-16 08:26] LABS: Eosinophils 3 % (0-4); Lymphocytes 2 % (9-44); Metamyelocytes 4 % (0-1); Monocytes 2 % (0-8); Myelocytes 1 % (0-0); Ovalocytes 1+; Platelet Estimate Normal (Normal); Tallied Nucleated RBC 3 (0-0)
[2018-01-16 08:28] LABS: Platelet Morphology Normal (Normal)
[2018-01-16] MEDS: Calcium/Vitamin D 250/125 MG Tablet PO SCH ×3 (08:31→17:17)
[2018-01-16] MEDS: Senna/Docusate Sodium 8.6/50 MG Tablet PO SCH (08:31)
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
--- NOTE | 2018-01-16 13:45 | P.DIET ---
Nutritional Evaluation Type of nutrition evaluation: follow-up Nutrition consult regarding: Diet Evaluation Subjective Subjective Comments: Pt awake and oriented per MD note. Objective - Diagnosis ALF, open book pelvis - Objective % IBW: 162 (IBW = 190#) Body Weight Used for Calculations: IBW (86.4 kgs) Energy Needs - Lower Range (kCal/kg): 25 Energy Needs - Upper Range (kCal/kg): 30 Lower Limit kCal/kg (kCals): 2,160 Upper Limit kCal/kg (kCals): 2,592 Lower Limit Protein Factor (Grams per Kg): 1.2 Upper Limit Protein Factor (Grams per Kg): 1.5 Lower Protein Needs (Protein): 104 Upper Protein Needs (Protein): 130 Dietitian Reviewed in Medical Record: Curent medications, Intake & Output, Labs , Medical history, Tube feeding Diet Order: cardiac diet Oral Diet Intake Amount: Excellent 90%+ Assessment Assessment: Pt currently on cardiac diet. Pt extubated and TF d/symone on 01/13. Pt tolerating diet well and consuming 50-100% of most meals. Will monitor PO intake and assess nutritional needs for a PO supplement as necessary. Labs reviewed, dietitian following. Recommendations: 1. Continue cardiac diet 2. Will monitor PO intake 3. Assess nutritional needs for a PO supplement as necessary 4. Dietitian following. Dietitian to Monitor: Lab values, Intake & Output, Diet tolerance, Weight change , PO Intake, Medical course
[2018-01-17] MEDS: Pantoprazole Inj 40 MG Vial IV.PUSH SCH (00:20)
[2018-01-17] MEDS: Morphine Sulfate Inj 2 MG/ML Vial IV.PUSH PRN (00:21)
[2018-01-17] MEDS: Senna/Docusate Sodium 8.6/50 MG Tablet PO SCH ×2 (00:29→09:01)
[2018-01-17] MEDS: Enoxaparin Inj 40 MG/0.4 ML Syringe SQ SCH ×2 (03:18→14:06)
--- NOTE | 2018-01-17 08:19 | XR ---
EXAM DATE: 01/17/2018 6:41 AM EDT AGE/SEX: 47 years / Male INDICATIONS: Follow up trauma, chest discomfort CLINICAL DATA: This is the patient's subsequent encounter. Patient reports that signs and symptoms h ave been present for 1 week and indicates a pain score of 6/10. MEDICAL/SURGICAL HISTORY: . right arm and pelvic fractures . bilateral chest tubes placed and removed COMPAR[place]: [facility] [place] 1[place] SINGLE AP, 01/16/2018. . FINDINGS: Left greater than right perihilar and basilar consolidation again noted and not significantly changed . A small left pleural effusion is suspected. No pneumothorax. Heart size stable, within normal limits. CONCLUSION: No significant change left greater than right perihilar and basilar consolidation and small left pleu ral effusion. Electronically signed by: Marlo James MD 01/17/2018 6:51 AM EDT
[2018-01-17 08:20] VITALS: RESP 16
[2018-01-17] MEDS: Calcium/Vitamin D 250/125 MG Tablet PO SCH ×2 (08:59→14:07)
[2018-01-17 12:01] VITALS: BP 122/61; PULSE 91; TEMP 97.9; O2SAT 95
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
== END 2018-01-17 14:37 ==
LOC: NEPI 22:36 → EDBD 23:39 → NEDA 23:39 → N03 23:45 → N06 01-15 15:54
PROVIDERS: ADMIT Surgery; ATTEND Surgery